=== PATIENT | female | born 1960 | race Caucasian/White ===

== ENCOUNTER 2016-10-05 12:27 | Emergency (ER) | payer MEDICARE, MEDICAID ==
[~2016-10-05] VITALS: Ht 160 cm; Wt 61.5 kg
[~2016-10-05 12:27] MED LIST: AMOX875 PO; BUSP5TAB PO; CEPALOZ SUCK-ON; CYMB60CA PO; DICY10 PO; GABA300C3 PO; LINA145C PO; LORA1TAB PO; MACR100C PO; MUCI600T PO; OMEP40CA2 PO; OXYC20TA PO; PHEN-426 PO; VALT1TAB26 PO; ZOFR4TAB3 SL
[2016-10-05 12:29] VITALS: BP 130/75; PULSE 85; RESP 20; TEMP 97.9; O2SAT 98
--- NOTE | 2016-10-05 12:52 | PD ---
Physical Exam Date Seen by Provider: Oct 05, 2016 Time Seen by Provider: 12:49 Narrative Patient seen in triage with reports of Dog Bite to Left Hand by her own dog last night. Patient states it is still bleeding. No significant pain. Vitals sign stable. Patient awaiting bed placement. Data Data Last Documented VS Vital Signs Date Time Temp Pulse Resp B/P Pulse Ox O2 Delivery O2 Flow Rate FiO2 10/05/16 12:29 97.9 85 20 130/75 98 Room Air [facility] Medical Record Reviewed: Yes Supervised Visit with SUBHASH: Yes Condition: Stable Brandon Alcantara Oct 05, 2016 12:52
[2016-10-05] MEDS ORDERED: AUGM875T PO (13:24)
[2016-10-05] MEDS ORDERED: IBUP-232 PO (13:24)
--- NOTE | 2016-10-05 13:25 | PD ---
HPI Chief Complaint: Wound/Suture/Staple Re-Check Time Seen by Provider: 13:23 Travel History International Travel<30 days: No Contact w/Intl Traveler<30days: No Traveled to known affect area: No History of Present Illness HPI 56-year-old female presents emergency Department with complaint of a dog bite wound to her left hand that happened 2 days ago. The dog was her own dog and is up-to-date on his vaccinations. She is up-to-date on her tetanus vaccination. She thinks that she may need a stitch in the wound because when she applies pressure to it it bleeds a little bit. Denies paresthesias, loss of sensation or decreased range of motion, decreased strength to affected extremity. Denies fever, chills, nausea, vomiting. Allergies to Cipro. No other modifying factors or associated signs and symptoms. PFSH Past Medical History Arthritis: Yes (degen disc disease) Autoimmune Disease: No Heart Rhythm Problems: No Cardiac Catheterization: No Cardiovascular Problems: Yes High Cholesterol: Yes Diabetes: Yes Diminished Hearing: No Respiratory: Yes (COPD) Menopausal: Yes Tubal Ligation: Yes Past Surgical History Abdominal Surgery: Yes (choley) Cholecystectomy: Yes Coronary Artery Bypass Graft: No Joint Replacement: Yes (bilat hip) Other Surgery: Yes (tubal ligation) Social History Alcohol Use: No Tobacco Use: No Substance Use: No Allergies-Medications (Allergen,Severity, Reaction): Coded Allergies: Cipro (Verified Allergy, Severe, STIFFENS HER MUSCLES, 10/05/16) Reported Meds & Prescriptions Reported Meds & Active Scripts Active Ibuprofen 600 Mg Tab 600 Mg PO Q6H PRN Augmentin (Amoxicillin-Clavulanate) 875-125 mg Tab 875 Mg PO BID 10 Days not for use in CrCl <30 ml/min. Mucinex (Guaifenesin) 600 Mg Tabcr 600 Mg PO BID PRN Cepacol (Benzocaine/Menthol) 1 Lozg Lozg 1 Lozg SUCK-ON DIRECTED PRN Amoxicillin 875 Mg Tab 875 Mg PO BID 10 Days Macrobid (Nitrofurantoin Macrocrystals) 100 Mg Cap 100 Mg PO BID Pyridium (Phenazopyridine HCl) 100 Mg Tab 100 Mg PO TID Zofran ODT (Ondansetron HCl) 4 Mg Tab 4 Mg SL Q6HR PRN FOR NAUSEA/VOMITING Reported Omeprazole 40 mg (Omeprazole) 40 Mg Cap 40 Mg PO DAILY Bentyl (Dicyclomine HCl) 10 Mg Cap 10 Mg PO BID PRN Cymbalta (Duloxetine Hcl) 60 Mg Cap 60 Mg PO BID Oxycodone (Oxycodone HCl) 20 Mg Tab 20 Mg PO QID Buspirone Hcl (Buspirone HCl) 5 Mg Tab 15 Mg PO BID Valtrex (Valacyclovir HCl) 1 Gm Tab 1 Gm PO DAILY Linzess (Linaclotide) 145 Mcg Cap 145 Mcg PO DAILY PRN Lorazepam 1 Mg Tab 1 Mg PO BID Gabapentin 300 Mg Cap 300 Mg PO TID Review of Systems Except as stated in HPI: all other systems reviewed are Neg Physical Exam Narrative GENERAL: Well-nourished, well-developed female patient, in no acute distress SKIN: Warm and dry. Less than 0.5 cm puncture wound noted to the dorsal medial aspect of the left hand; the wound is scabbed over and without erythema, edema, signs of infection. The left upper extremity supple and non-tense with 2+ radial pulses and sensory intact with full range motion and strength. No axillary lymphadenopathy. HEAD: Atraumatic. Normocephalic. EYES: Pupils equal and round. No scleral icterus. No injection or drainage. ENT: Mucosa pink and moist. Airway patent. NECK: Trachea midline. CARDIOVASCULAR: Regular rate. RESPIRATORY: No accessory muscle use. GASTROINTESTINAL: Flat. MUSCULOSKELETAL: No obvious deformities. No clubbing. No cyanosis. No edema. NEUROLOGICAL: Awake and alert. Oriented 3. No obvious cranial nerve deficits. Motor grossly within normal limits. Normal speech. PSYCHIATRIC: Appropriate mood and affect; insight and judgment normal. Data Data Last Documented VS Vital Signs Date Time Temp Pulse Resp B/P Pulse Ox O2 Delivery O2 Flow Rate FiO2 10/05/16 12:29 97.9 85 20 130/75 98 Room Air MDM Medical Decision Making Medical Screen Exam Complete: Yes Emergency Medical Condition: Yes Medical Record Reviewed: Yes Differential Diagnosis Dogbite, puncture wound, laceration Narrative Course 56-year-old female with dog bite puncture wound to her left hand. The dog was her own dog. She declines initiation of rabies protocol. Her tetanus is up-to- date. Left approximately supple and non-tense with 2+ radial pulses and sensory intact without erythema or edema. Augmentin and ibuprofen prescribed for home. Patient verbalizes understanding and agreement with treatment plan. Patient is medically cleared and stable for discharge. Discussed reasons to return to the emergency department. Instructed patient to follow up with primary care provider. Patient agrees with treatment plan. The patients vital signs are stable and the patient is stable for outpatient follow-up and treatment. Patient discharged home, stable and in no acute distress. Diagnosis Primary Impression: Dog bite of left hand Qualified Code: S61.452A - Dog bite of left hand, initial encounter Referrals: Primary Care Physician Patient Instructions: Animal Bite (ED), General Instructions Departure Forms: Tests/Procedures, Work Release Enter return to work date: Oct 06, 2016 Additional Instructions: Ibuprofen or Tylenol as directed and as needed for pain and inflammation Antibiotic as prescribed and complete full course Keep area clean and dry Apply topical antibiotic ointment as directed and as needed for wound care Follow up with primary care provider Return to the emergency department immediately with worsening symptoms Med/Other Pt SpecificInfo: Prescription(s) given Scripts Ibuprofen 600 Mg [id number] Mg PO Q6H PRN (PAIN SCALE 1 TO 10) #20 TAB Ref 0 Prov:Isabella Sarmiento 10/05/16 Amoxicillin-Clavulanate (Augmentin)875-125 mg [id number] Mg PO BID 10 Days Ref 0 not for use in CrCl <30 ml/min. Prov:Isabella Sarmiento 10/05/16 Disposition: 01 DISCHARGE HOME Condition: Stable Isabella Sarmiento Oct 05, 2016 13:25
== END 2016-10-05 13:48 | disposition home or self-care (01) ==
LOC: NETRI 12:27
DX: S61.452A Open bite of left hand, initial encounter (principal); W54.0XXA Bitten by dog, initial encounter
CPT/HCPCS: 99283

== ENCOUNTER 2016-11-03 12:20 | Emergency (ER) | payer OTHER, MEDICARE, MEDICAID ==
[~2016-11-03] VITALS: Ht 160 cm; Wt 62.0 kg
[~2016-11-03 12:20] MED LIST changes: +AUGM875T PO; +IBUP-232 PO
[2016-11-03 12:21] VITALS: BP 136/75; PULSE 82; RESP 20; TEMP 98.4; O2SAT 99
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
[2016-11-03] MEDS ORDERED: OPAN10TA19 PO (13:04)
[2016-11-03] MEDS ORDERED: DICY10 PO (13:07)
[2016-11-03] MEDS ORDERED: BUSP15TA PO (13:07)
[2016-11-03] MEDS ORDERED: IBUP-232 PO (13:15)
[2016-11-03] MEDS ORDERED: CYMB60CA PO (13:15)
[2016-11-03] MEDS ORDERED: VALT1TAB PO (13:15)
[2016-11-03] MEDS ORDERED: OMEP40CA2 PO (13:15)
[2016-11-03] MEDS ORDERED: ZOFR4TAB3 SL (13:15)
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
[2016-11-03] MEDS ORDERED: IBUP800T23 PO (13:29)
[2016-11-03] MEDS ORDERED: ROBA500T PO (13:29)
[2016-11-03] MEDS ORDERED: IBUPROFEN 800 MG TAB PO ONE (13:30)
[2016-11-03] MEDS ORDERED: METHOCARBAMOL 500 MG TAB PO ONE (13:30)
== END 2016-11-03 14:34 | disposition home or self-care (01) ==
LOC: NEPK 12:20
DX: S46.811A Strain of other muscles, fascia and tendons at shoulder and upper arm level, right arm, initial encounter (principal); S16.1XXA Strain of muscle, fascia and tendon at neck level, initial encounter; M25.562 Pain in left knee; E11.9 Type 2 diabetes mellitus without complications; I10 Essential (primary) hypertension; E78.00 Pure hypercholesterolemia, unspecified; Z87.39 Personal history of other diseases of the musculoskeletal system and connective tissue; Z86.79 Personal history of other diseases of the circulatory system; Z87.09 Personal history of other diseases of the respiratory system; V89.2XXA Person injured in unspecified motor-vehicle accident, traffic, initial encounter
CPT/HCPCS: 99283

== ENCOUNTER 2016-12-17 19:10 | Emergency (ER) | payer MEDICARE, MEDICAID ==
[~2016-12-17] VITALS: Ht 160 cm; Wt 65.0 kg
[~2016-12-17 19:10] MED LIST changes: -AMOX875 PO; -AUGM875T PO; +BUSP15TA PO; -BUSP5TAB PO; -CEPALOZ SUCK-ON; -GABA300C3 PO; +IBUP800T23 PO; -LINA145C PO; -LORA1TAB PO; -MACR100C PO; -MUCI600T PO; +OPAN10TA19 PO; -OXYC20TA PO; -PHEN-426 PO; +ROBA500T PO; +VALT1TAB PO; -VALT1TAB26 PO
[2016-12-17 19:11] VITALS: BP 109/71; PULSE 84; RESP 16; TEMP 98.4; O2SAT 99
[2016-12-17] MEDS ORDERED: AUGM875T3 PO (19:36)
--- NOTE | 2016-12-17 19:37 | PD ---
HPI Chief Complaint: Bite or Sting Time Seen by Provider: 19:28 Travel History International Travel<30 days: No Contact w/Intl Traveler<30days: No Traveled to known affect area: No History of Present Illness HPI 56-year-old female here for evaluation of lacerations left index finger and one laceration to the dorsal aspect of her right hand after being bit by her own dog. The patient reports that she has a Pomeranian likes to bite, and bit her hands about an hour ago. She states that the dog has all of his immunizations. She reports that she recently had her tetanus updated this year. Pain is mild. She reports that she washed her hands thoroughly after the bite and applied hydrogen peroxide to the wounds. PFSH Past Medical History Arthritis: Yes (degen disc disease) Autoimmune Disease: No Heart Rhythm Problems: No Cardiac Catheterization: No Cardiovascular Problems: Yes (HTN ) High Cholesterol: Yes Diabetes: Yes Diminished Hearing: No Hypertension: Yes (pt denies) Respiratory: Yes (COPD) Menopausal: Yes Tubal Ligation: Yes Past Surgical History Abdominal Surgery: Yes ( ) Cholecystectomy: Yes Coronary Artery Bypass Graft: No Joint Replacement: Yes (bilat hip) Other Surgery: Yes (tubal ligation) Social History Alcohol Use: Yes (seldom) Tobacco Use: No Substance Use: No Allergies-Medications (Allergen,Severity, Reaction): Coded Allergies: Cipro (Verified Allergy, Severe, STIFFENS HER MUSCLES, 12/17/16) Reported Meds & Prescriptions Reported Meds & Active Scripts Active Augmentin (Amoxicillin-Clavulanate) 875-125 Mg Tab 1 Tab PO BID 14 Days Reported Elmiron (Pentosan Polysulfate Sodium) 100 Mg Cap 100 Mg PO TID Valtrex (Valacyclovir HCl) 1 Gm Tab 1,000 Mg PO DAILY Zofran Odt (Ondansetron Odt) 4 Mg Tab 4 Mg SL Q12HR PRN Omeprazole 40 Mg Cap 40 Mg PO DAILY Ibuprofen 600 Mg Tab 600 Mg PO Q6H PRN Cymbalta DR (Duloxetine HCl) 60 Mg Capdr 60 Mg PO BID Bentyl (Dicyclomine HCl) 10 Mg Cap 10 Mg PO BID PRN Buspirone (Buspirone HCl) 15 Mg Tab 15 Mg PO BID Opana (Oxymorphone HCl) 10 Mg Tab 30 Mg PO Q12HR Review of Systems Except as stated in HPI: all other systems reviewed are Neg Physical Exam Narrative GENERAL: Well-developed, well-nourished, comfortable, no acute distress. SKIN: Very superficial lacerations to left index finger, one over the dorsal aspect over the DIP joint, and another over the medial/volar/distal aspect. There is also very superficial laceration to the proximal/dorsal right hand. No obvious contaminants. No active bleeding. CARDIOVASCULAR: Regular rate and rhythm. Bilateral distal radial pulses are brisk and equal. Normal capillary refill to bilateral hands and left index finger. MUSCULOSKELETAL: Skin exam as above. Normal range of flexion and extension in left index finger against resistance. FDS and FDP are intact. NEUROLOGICAL: Awake and alert. No obvious cranial nerve deficits. Motor grossly within normal limits. Normal speech. Normal sensation in bilateral hands. PSYCHIATRIC: Appropriate mood and affect; insight and judgment normal. Data Data Last Documented VS Vital Signs Date Time Temp Pulse Resp B/P Pulse Ox O2 Delivery O2 Flow Rate FiO2 12/17/16 19:11 98.4 84 16 109/71 99 Room Air Orders Finger ([id number]) (12/17/16 ) Amoxicil-Clavulanate (Augmentin) (12/17/16 19:45) MDM Medical Decision Making Medical Screen Exam Complete: Yes Emergency Medical Condition: Yes Differential Diagnosis Dog bite, tendon/ligament injury unlikely Narrative Course Left index finger x-ray: CONCLUSION: Osseous structures of the 2nd digit are intact. No radiopaque foreign bodies. Patient has very superficial lacerations to her left index finger as well as the dorsal aspect of her right hand. Because these are dog bite, they will not be closed. There is no active bleeding. No visible contaminants. No physical exam findings of tendon or ligament injury. The patient will be started on Augmentin. She is stable for discharge home with primary care physician follow- up this week. She was informed on when to return to the emergency department. She verbalizes understanding and agreement with plan. Diagnosis Primary Impression: Dog bite Qualified Code: W54.0XXA - Dog bite, initial encounter Referrals: Primary Care Physician 3 days Additional Instructions: Follow-up with your primary care physician this week. Take antibiotic as prescribed. Return to the emergency department for worsening symptoms or any other concerns. Scripts Amoxicillin-Clavulanate (Augmentin)875-125 Mg Tab1 Tab PO BID 14 Days Ref 0 Prov:Syed Mayers MD 12/17/16 Disposition: 01 DISCHARGE HOME Condition: Stable Syed Mayers MD Dec 17, 2016 19:37
[2016-12-17] MEDS ORDERED: AMOXICILLIN/CLAVULANATE K 875 MG TAB PO ONE (19:45)
[2016-12-17] MEDS ORDERED: ELMI100C PO (20:02)
--- NOTE | 2016-12-17 20:20 | RADRPT ---
EXAM DATE/TIME: 12/17/2016 19:54 [facility] COMPARISON: No previous studies available for comparison. INDICATIONS : Dog bite, laceration to distal and middle phalanges of 2nd digit. MEDICAL HISTORY : None. SURGICAL HISTORY : None. ENCOUNTER: Initial ACUITY: 1 day PAIN SCORE: 5/10 LOCATION: Left 2nd finger FINDINGS: Examination of the second digit of the left hand demonstrates no evidence of fracture or dislocation. No radiopaque foreign bodies are seen. The soft tissues are intact. CONCLUSION: Osseous structures of the 2nd digit are intact. No radiopaque foreign bodies. Kar Fournier MD on December 17, 2016 at 20:17 Board Certified Radiologist. This report was verified electronically.
== END 2016-12-17 20:59 | disposition home or self-care (01) ==
LOC: NEPD 19:10
DX: S61.251A Open bite of left index finger without damage to nail, initial encounter (principal); W54.0XXA Bitten by dog, initial encounter; I10 Essential (primary) hypertension; E11.9 Type 2 diabetes mellitus without complications; J44.9 Chronic obstructive pulmonary disease, unspecified
CPT/HCPCS: 73140; 99283

== ENCOUNTER 2016-12-19 15:52 | Emergency (ER) | payer MEDICARE, MEDICAID ==
[~2016-12-19] VITALS: Ht 160 cm; Wt 60.0 kg
[~2016-12-19 15:52] MED LIST changes: +AUGM875T3 PO; +ELMI100C PO; -IBUP800T23 PO; -ROBA500T PO
[2016-12-19 15:53] VITALS: BP 116/73; PULSE 84; RESP 16; TEMP 98.4; O2SAT 99
[2016-12-19] MEDS ORDERED: SODIUM CHLOR 0.9% 1000 ML INJ 1,000 ML IV SCH (17:09)
[2016-12-19 17:10] VITALS: RESP 17; O2SAT 99
--- NOTE | 2016-12-19 17:14 | PD ---
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 She states that it is intermittent and goes up to a 10 out of 10. She has been having hematuria. She denies any fevers, vomiting, or any other symptoms. She states that she was trying to follow-up with Dr. Shoemaker but he is not around. Modifying Factors: None Associated Signs & Symptoms: Left flank pain worsening for a month Risk Factors: Horseshoe kidney PFSH Past Medical History Arthritis: Yes (degen disc disease) Autoimmune Disease: No Anxiety: Yes Depression: Yes Heart Rhythm Problems: No Cardiac Catheterization: No Cardiovascular Problems: Yes (HTN ) High Cholesterol: Yes Diabetes: Yes Diminished Hearing: No Genitourinary: Yes (LEFT KIDNEY CYST) Heparin Induced Thrombocytopen: No Hypertension: Yes (pt denies) Psychiatric: Yes Respiratory: Yes (COPD) Tetanus Vaccination: < 5 Years Influenza Vaccination: Yes Menopausal: Yes Tubal Ligation: Yes Past Surgical History Abdominal Surgery: Yes ( ) Cholecystectomy: Yes Coronary Artery Bypass Graft: No Joint Replacement: Yes (bilat hip) Other Surgery: Yes (tubal ligation) Family History Family Myocardial Infarction: Yes (father side grandfather ) Social History Alcohol Use: Yes (OCASSIONALLY) Tobacco Use: No Substance Use: No Allergies-Medications (Allergen,Severity, Reaction): Coded Allergies: Cipro (Verified Adverse Reaction, Severe, STIFFENS HER MUSCLES, 12/19/16) Reported Meds & Prescriptions Reported Meds & Active Scripts Active Augmentin (Amoxicillin-Clavulanate) 875-125 Mg Tab 1 Tab PO BID 14 Days Reported Elmiron (Pentosan Polysulfate Sodium) 100 Mg Cap 100 Mg PO TID Valtrex (Valacyclovir HCl) 1 Gm Tab 1,000 Mg PO DAILY Zofran Odt (Ondansetron Odt) 4 Mg Tab 4 Mg SL Q12HR PRN Omeprazole 40 Mg Cap 40 Mg PO DAILY Ibuprofen 600 Mg Tab 600 Mg PO Q6H PRN Cymbalta DR (Duloxetine HCl) 60 Mg Capdr 60 Mg PO BID Bentyl (Dicyclomine HCl) 10 Mg Cap 10 Mg PO BID PRN Buspirone (Buspirone HCl) 15 Mg Tab 15 Mg PO BID Opana (Oxymorphone HCl) 10 Mg Tab 30 Mg PO Q12HR Review of Systems Except as stated in HPI: all other systems reviewed are Neg Physical Exam Narrative GENERAL: Well-developed elderly white female patient currently in moderate distress. Awake and oriented 3. SKIN: Focused skin assessment warm/dry. HEAD: Atraumatic. Normocephalic. EYES: Pupils equal and round. No scleral icterus. No injection or drainage. ENT: No nasal bleeding or discharge. Mucous membranes pink and moist. NECK: Trachea midline. No JVD. CARDIOVASCULAR: Regular rate and rhythm. No murmur appreciated. RESPIRATORY: No accessory muscle use. Clear to auscultation. Breath sounds equal bilaterally. GASTROINTESTINAL: Abdomen soft, non-tender, nondistended. Hepatic and splenic margins not palpable. BACK: Left CVA tenderness. No rash. No point tenderness on palpation of the spine. MUSCULOSKELETAL: No obvious deformities. No clubbing. No cyanosis. No edema. NEUROLOGICAL: Awake and alert. No obvious cranial nerve deficits. Motor grossly within normal limits. Normal speech. PSYCHIATRIC: Appropriate mood and affect; insight and judgment normal. Data Data Last Documented VS Vital Signs Date Time Temp Pulse Resp B/P Pulse Ox O2 Delivery O2 Flow Rate FiO2 12/19/16 17:20 16 12/19/16 17:10 99 Room Air 12/19/16 15:53 98.4 84 116/73 Orders Complete Blood Count With Diff (12/19/16 17:09) Comprehensive Metabolic Panel (12/19/16 17:09) Lipase (12/19/16 17:09) Urinalysis - C+S If Indicated (12/19/16 17:09) Ct Abd/Pel W/O Iv Contrast (12/19/16 17:09) Iv Access Insert/Monitor (12/19/16 17:09) Ecg Monitoring (12/19/16 17:09) Oximetry (12/19/16 17:09) Morphine Inj (Morphine Inj) (12/19/16 17:15) Ondansetron Inj (Zofran Inj) (12/19/16 17:15) Sodium Chlor 0.9% 1000 Ml Inj (Ns 1000 M (12/19/16 17:09) Sodium Chloride 0.9% Flush (Ns Flush) (12/19/16 17:15) Labs Laboratory Tests Test 12/19/16 12/19/16 17:11 17:18 White Blood Count 5.6 TH/MM3 Red Blood Count 4.43 MIL/MM3 Hemoglobin 13.2 GM/DL Hematocrit 40.6 % Mean Corpuscular Volume 91.7 FL Mean Corpuscular Hemoglobin 29.7 PG Mean Corpuscular Hemoglobin 32.4 % Concent Red Cell Distribution Width 15.0 % Platelet Count 278 TH/MM3 Mean Platelet Volume 8.0 FL Neutrophils (%) (Auto) 43.0 % Lymphocytes (%) (Auto) 39.5 % Monocytes (%) (Auto) 13.0 % Eosinophils (%) (Auto) 3.7 % Basophils (%) (Auto) 0.8 % Neutrophils # (Auto) 2.4 TH/MM3 Lymphocytes # (Auto) 2.2 TH/MM3 Monocytes # (Auto) 0.7 TH/MM3 Eosinophils # (Auto) 0.2 TH/MM3 Basophils # (Auto) 0.0 TH/MM3 CBC Comment DIFF FINAL Differential Comment Sodium Level 143 MEQ/L Potassium Level 3.6 MEQ/L Chloride Level 107 MEQ/L Carbon Dioxide Level 30.7 MEQ/L Anion Gap 5 MEQ/L Blood Urea Nitrogen 19 MG/DL Creatinine 1.02 MG/DL Estimat Glomerular Filtration 56 ML/MIN Rate Random Glucose 91 MG/DL Calcium Level 8.6 MG/DL Total Bilirubin 0.2 MG/DL Aspartate Amino Transf 17 U/L (AST/SGOT) Alanine Aminotransferase 23 U/L (ALT/SGPT) Alkaline Phosphatase 103 U/L Total Protein 6.6 GM/DL Albumin 3.7 GM/DL Lipase 272 U/L Urine Color YELLOW Urine Turbidity CLEAR Urine pH 5.5 Urine Specific [place] 1.029 Urine Protein TRACE mg/dL Urine Glucose (UA) NEG mg/dL Urine Ketones NEG mg/dL Urine Occult Blood SMALL Urine Nitrite NEG Urine Bilirubin NEG Urine Urobilinogen 2.0 MG/DL Urine Leukocyte Esterase SMALL Urine RBC 24 /hpf Urine WBC 1 /hpf Urine Squamous Epithelial 1 /hpf Cells Urine Mucus FEW /lpf Microscopic Urinalysis Comment CULT NOT INDICATED MDM Medical Decision Making Medical Screen Exam Complete: Yes Emergency Medical Condition: Yes Medical Record Reviewed: Yes Interpretation(s) Laboratory Tests Test 12/19/16 12/19/16 17:11 17:18 Monocytes (%) (Auto) 13.0 % (0.0-8.0) Blood Urea Nitrogen 19 MG/DL (7-18) Creatinine 1.02 MG/DL (0.50-1.00) Estimat Glomerular Filtration 56 ML/MIN (>89) Rate Urine Occult Blood SMALL (NEG) Urine Leukocyte Esterase SMALL (NEG) Urine RBC 24 /hpf (0-3) Urine Mucus FEW /lpf (OCC) Last 24 hours Impressions Abdomen/Pelvis CT 12/19/16 1709 Signed Impressions: Service Date/Time: Monday, December 19, 2016 17:33 - CONCLUSION: 1. No acute obstructive uropathy. 2. Slight increase in the cystic lesion within the left lobe of the liver measuring 4.2 x 3.5 cm. 3. Degenerative changes and scoliosis of the lumbar spine. Cristhian Ravi MD Differential Diagnosis Left flank pains, horseshoe kidneyrenal colic versus pyelonephritis/UTI versus other acute intra-abdominal processes Narrative Course CAT scan did not show any signs of a horseshoe kidney. There are no signs of renal colic or any other acute issues. UA shows blood but no signs of UTI. At this point, it is possible she had just passed a stone. She had been given pain medications in the ER and appears fairly comfortable on reevaluation at 6: 20 PM. My plan would be to give her further symptomatic relief or pain and have her follow-up with primary care physician and urologist. Return for any worsening in pain or new symptoms as needed. The plan has discussed with her and she states understanding. Diagnosis Primary Impression: Left flank pain Med/Other Pt SpecificInfo: Prescription(s) given Scripts Tramadol-Acetaminophen 37.5-325 mg Tab1 Tab PO Q6H PRN (PAIN) #20 TAB Ref 0 Prov:Niki Dye MD 12/19/16 Disposition: 01 DISCHARGE HOME Condition: Stable Niki Dye MD Dec 19, 2016 17:14
[2016-12-19] MEDS ORDERED: SODIUM CHLORIDE 0.9% FLUSH 10 ML FLUSH IV FLUSH PRN (17:15)
[2016-12-19] MEDS ORDERED: MORPHINE SULFATE 4 MG/ML INJ IV PUSH ONE (17:15)
[2016-12-19] MEDS ORDERED: ONDANSETRON HCL 4 MG/2 ML VIAL IVP ONE (17:15)
[2016-12-19 17:20] VITALS: RESP 16
[2016-12-19 17:51] LABS: AUTOMATED NEUTROPHIL # 2.4 TH/MM3 (1.8-7.7); BASOPHIL % 0.8 % (0.0-2.0); EOSINOPHIL # 0.2 TH/MM3 (0-0.4); EOSINOPHIL % 3.7 % (0.0-4.0); HEMATOCRIT 40.6 % (35.0-46.0); HEMO FLAGS DIFF FINAL; LYMPH % 39.5 % (9.0-44.0); LYMPHOCYTE # 2.2 TH/MM3 (1.0-4.8); MEAN CELL VOLUME 91.7 FL (80.0-100.0); MEAN CORPUSCULAR HEMOGLOBIN 29.7 PG (27.0-34.0); MEAN CORPUSCULAR HGB CONC 32.4 % (32.0-36.0); PLATELET COUNT 278 TH/MM3 (150-450); RED BLOOD COUNT 4.43 MIL/MM3 (4.00-5.30); WHITE BLOOD COUNT 5.6 TH/MM3 (4.0-11.0)
--- NOTE | 2016-12-19 17:56 | RADRPT ---
EXAM DATE/TIME: 12/19/2016 17:33 [facility] COMPARISON: CT ABDOMEN & PELVIS W/O CONTRAST, March 28, 2015, 12:08. INDICATIONS : Left flank pain past month. ORAL CONTRAST: No oral contrast ingested. RADIATION DOSE: 7.14 CTDIvol (mGy) MEDICAL HISTORY : Cardiovascular disease. Hypertension. SURGICAL HISTORY : Bilateral hip replacements. ENCOUNTER: Initial ACUITY: 4 - 6 months PAIN SCALE: 5/10 LOCATION: Left flank TECHNIQUE: Volumetric scanning of the abdomen and pelvis was performed. Using automated exposure control and ad justment of the mA and/or kV according to patient size, radiation dose was kept as low as reasonably achievable to obtain optimal diagnostic quality images. FINDINGS: LOWER LUNGS: The visualized lower lungs are clear. LIVER: There is a 4.2 x 3.5 cm cystic lesion within the left lobe which has increased slightly in size zoe red to the previous examination in 2014. There is no dilation of the biliary tree. No calcified gall stones. Status post cholecystectomy. SPLEEN: Normal size without lesion. PANCREAS: Within normal limits. KIDNEYS: Normal in size and shape. There is no mass, stone, or hydronephrosis. ADRENAL GLANDS: Within normal limits. VASCULAR: There is no aortic aneurysm. BOWEL/MESENTERY: The stomach, small bowel, and colon demonstrate no acute abnormality. There is no free intraperitone al air or fluid. ABDOMINAL WALL: Within normal limits. RETROPERITONEUM: There is no lymphadenopathy. BLADDER: No wall thickening or mass. REPRODUCTIVE: Within normal limits. INGUINAL: There is no lymphadenopathy or hernia. MUSCULOSKELETAL: Degenerative changes and scoliosis of the lumbar spine are stable. Bilateral hip replacements are not ed and artifact from these metallic prostheses obscures portions of the pelvis. CONCLUSION: 1. No acute obstructive uropathy. 2. Slight increase in the cystic lesion within the left lobe of the liver measuring 4.2 x 3.5 cm. 3. Degenerative changes and scoliosis of the lumbar spine. Cristhian Ravi MD on December 19, 2016 at 17:44 Board Certified Radiologist. This report was verified electronically.
[2016-12-19 18:02] LABS: BLOOD, URINE SMALL (NEG); GLUCOSE,URINE NEG (NEG); KETONE, URINE NEG (NEG); MUCUS URINE FEW /lpf (OCC); NITRITE,URINE NEG (NEG); PH, URINE 5.5 (5.0-8.5); SQUAMOUS EPITHELIAL CELL URINE 1 /hpf (0-5); URINE COLOR YELLOW (YELLW/STRAW)
[2016-12-19 18:05] LABS: COMMENT (UR) CULT NOT INDICATED; CULTURE IF INDICATED CULT NOT INDICATED
[2016-12-19 18:19] LABS: ALT (GPT) 23 U/L (10-53); ANION GAP 5 MEQ/L (5-15); AST (GOT) 17 U/L (15-37); BICARBONATE 30.7 MEQ/L (21.0-32.0); BLOOD UREA NITROGEN 19 MG/DL (7-18); CHLORIDE 107 MEQ/L (98-107); GLOMERULAR FILTRATION RATE 56 ML/MIN (>89); POTASSIUM 3.6 MEQ/L (3.5-5.1); SODIUM (NA) 143 MEQ/L (136-145)
[2016-12-19 18:21] LABS: ALKALINE PHOSPHATASE 103 U/L (45-117); TOTAL BILIRUBIN ADULT 0.2 MG/DL (0.2-1.0)
[2016-12-19] MEDS ORDERED: TRAM-388 PO (18:27)
[2016-12-19 18:42] VITALS: BP 130/77; TEMP 97.8
== END 2016-12-19 18:42 | disposition home or self-care (01) ==
LOC: NEPC 15:52
DX: R10.9 Unspecified abdominal pain (principal)
CPT/HCPCS: 74176; 80053; 81001; 83690; 85025; 96361; 96374; 96375; 99285; J2270; J2405; J7030

== ENCOUNTER 2017-03-03 08:36 | Emergency (ER) | payer MEDICARE, MEDICAID ==
[~2017-03-03] VITALS: Ht 160 cm; Wt 61.5 kg
[~2017-03-03 08:36] MED LIST changes: +TRAM-388 PO
[2017-03-03 08:38] VITALS: BP 110/75; PULSE 80; RESP 20; TEMP 98.7; O2SAT 98
[2017-03-03] MEDS ORDERED: OXYC1CAP5 (09:38)
[2017-03-03] MEDS ORDERED: AUGM875T3 PO (09:54)
--- NOTE | 2017-03-03 09:55 | PD ---
HPI Chief Complaint: Bite or Sting Time Seen by Provider: 09:52 Travel History International Travel<30 days: No Contact w/Intl Traveler<30days: No Traveled to known affect area: No History of Present Illness HPI 57-year-old female presents emergency Department with complaint of dog bite wound to her left hand since last night. Reports pain and some reddening around 2 bite castillo. Denies fever, vomiting. Is up-to-date on her tetanus vaccination. 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 Denies paresthesias, loss of sensation, decreased range of motion, decreased strength to the affected extremity. Has taken prescribed oxycodone for symptom management. Allergies to ciprofloxacin. Has no other medical complaints. No other modifying factors or associated signs and symptoms. PFSH Past Medical History Hx Anticoagulant Therapy: No Arthritis: Yes (degen disc disease) Autoimmune Disease: No Anxiety: Yes Depression: Yes Heart Rhythm Problems: No Cardiac Catheterization: No Cardiovascular Problems: No High Cholesterol: Yes Chemotherapy: No Cerebrovascular Accident: No Diabetes: Yes Patient Takes Glucophage: No Diminished Hearing: No Genitourinary: Yes (LEFT KIDNEY CYST) Heparin Induced Thrombocytopen: No Hypertension: Yes (pt denies) Psychiatric: Yes Respiratory: No Tetanus Vaccination: < 5 Years ?: Not Menopausal: Yes Tubal Ligation: Yes Past Surgical History Abdominal Surgery: Yes ( ) Cholecystectomy: Yes Coronary Artery Bypass Graft: No Hysterectomy: No Joint Replacement: Yes (bilat hip) Other Surgery: Yes (tubal ligation) Family History Family Myocardial Infarction: Yes (father side grandfather ) Social History Alcohol Use: Yes (OCASSIONALLY) Tobacco Use: No Substance Use: No Allergies-Medications (Allergen,Severity, Reaction): Coded Allergies: ciprofloxacin (Unverified Adverse Reaction, Severe, STIFFENS HER MUSCLES, 02/21/17) Reported Meds & Prescriptions Reported Meds & Active Scripts Active Augmentin (Amoxicillin-Clavulanate) 875-125 Mg Tab 1 Tab PO BID 10 Days Reported Xtampza ER (Oxycodone) 18 Mg Cap BID Elmiron (Pentosan Polysulfate Sodium) 100 Mg Cap 100 Mg PO TID Valtrex (Valacyclovir HCl) 1 Gm Tab 1,000 Mg PO DAILY Omeprazole 40 Mg Cap 40 Mg PO DAILY Cymbalta DR (Duloxetine HCl) 60 Mg Capdr 60 Mg PO BID Buspirone (Buspirone HCl) 15 Mg Tab 15 Mg PO BID Review of Systems Except as stated in HPI: all other systems reviewed are Neg Physical Exam Narrative GENERAL: Well-nourished, well-developed female patient, in no acute distress; afebrile, nontoxic-appearing SKIN: Warm and dry. Palmar aspect of left hand over the area of the fifth metatarsal with 3-4 superficial puncture wounds noted, one with some surrounding erythema; one puncture wound noted to the left palmar aspect of the left distal forearm with some surrounding erythema. No areas with drainage noted. 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 No lymphangitis. HEAD: Atraumatic. Normocephalic. EYES: Pupils equal and round. No scleral icterus. No injection or drainage. ENT: Mucosa pink and moist. Airway patent. NECK: Trachea midline. CARDIOVASCULAR: Regular rate. RESPIRATORY: No accessory muscle use. GASTROINTESTINAL: Flat. MUSCULOSKELETAL: No obvious deformities. No clubbing. No cyanosis. No edema. NEUROLOGICAL: Awake and alert. Oriented 3. No obvious cranial nerve deficits. Motor grossly within normal limits. Normal speech. PSYCHIATRIC: Appropriate mood and affect; insight and judgment normal. Data Data Last Documented VS Vital Signs Date Time Temp Pulse Resp B/P (MAP) Pulse Ox O2 Delivery O2 Flow Rate FiO2 03/03/17 08:38 98.7 80 20 110/75 (87) 98 Room Air Orders Orders Ibuprofen (Motrin) (03/03/17 10:00) [facility] Medical Decision Making Medical Screen Exam Complete: Yes Emergency Medical Condition: Yes Medical Record Reviewed: Yes Differential Diagnosis Dogbite wounds, puncture wound, medical clearance Narrative Course 57-year-old female with dog bite puncture wounds of her left hand. Patient is afebrile and nontoxic-appearing. Denies fever, vomiting. Up-to-date on her tetanus vaccination. 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 Ibuprofen administered in the ER. Augmentin prescribed for home. Instructed patient to follow up with primary care provider. Patient verbalizes understanding and agreement with treatment plan. Patient is medically cleared and stable for discharge. Discussed reasons to return to the emergency department. Patient agrees with treatment plan. The patients vital signs are stable and the patient is stable for outpatient follow- up and treatment. Patient discharged home, stable and in no acute distress. Diagnosis Primary Impression: Dog bite of left hand Qualified Codes: S61.452A - Open bite of left hand, initial encounter; W54.0XXA - Bitten by dog, initial encounter Referrals: [facility] Primary Care Physician Patient Instructions: Animal Bite (ED), General Instructions Additional Instructions: Keep area clean and dry Antibiotics as prescribed and take until they are gone Follow-up with primary care provider Return to the emergency department immediately with worsening of symptoms Med/Other Pt SpecificInfo: Prescription(s) given Scripts Amoxicillin-Clavulanate (Augmentin) 875-125 Mg Tab 1 TAB PO BID for Infection for 10 Days, TAB 0 Refills Prov: Isabella Sarmiento 03/03/17 Disposition: 01 DISCHARGE HOME Condition: Stable Isabella Sarmiento Mar 03, 2017 09:55
[2017-03-03] MEDS ORDERED: IBUPROFEN 800 MG TAB PO ONE (10:00)
== END 2017-03-03 10:18 | disposition home or self-care (01) ==
LOC: NEPK 08:36
DX: S61.452A Open bite of left hand, initial encounter (principal); E11.9 Type 2 diabetes mellitus without complications; I10 Essential (primary) hypertension; E78.00 Pure hypercholesterolemia, unspecified; Z87.39 Personal history of other diseases of the musculoskeletal system and connective tissue; Z86.59 Personal history of other mental and behavioral disorders; Z87.448 Personal history of other diseases of urinary system; W54.0XXA Bitten by dog, initial encounter
CPT/HCPCS: 99283

== ENCOUNTER 2017-04-15 18:46 | Emergency (ER) | payer MEDICARE, MEDICAID ==
[~2017-04-15] VITALS: Ht 160 cm; Wt 60.0 kg
[~2017-04-15 18:46] MED LIST changes: -DICY10 PO; -IBUP-232 PO; -OPAN10TA19 PO; +OXYC1CAP5; -TRAM-388 PO; -ZOFR4TAB3 SL
[2017-04-15 18:48] VITALS: BP 136/78; PULSE 98; RESP 13; TEMP 99; O2SAT 96
[2017-04-15] MEDS ORDERED: SODIUM CHLORIDE 0.9% FLUSH 10 ML FLUSH IVF PRN (22:30)
[2017-04-15] MEDS ORDERED: NITROGLYCERIN 2% OINT 1 GM PACKET TOP ONE (22:30)
[2017-04-15] MEDS ORDERED: ASPIRIN 81 MG CHEW TAB PO ONE (22:30)
--- NOTE | 2017-04-15 22:52 | RADRPT ---
EXAM DATE/TIME: 04/15/2017 22:27 [facility] COMPARISON: CHEST SINGLE AP, June 22, 2015, 14:26. INDICATIONS : Chest pain. MEDICAL HISTORY : Cardiovascular disease. Chronic obstructive pulmonary disease. Hypertension. SURGICAL HISTORY : Bilateral hip arthroplasties ENCOUNTER: Initial ACUITY: 1 day PAIN SCORE: 10/10 LOCATION: Bilateral chest FINDINGS: A single view of the chest demonstrates the lungs to be symmetrically aerated without evidence of mas s, infiltrate or effusion. The cardiomediastinal contours are unremarkable. Osseous structures are intact. CONCLUSION: No acute disease. Emeka Bauman MD on April 15, 2017 at 22:50 Board Certified Radiologist. This report was verified electronically.
[2017-04-15 23:00] VITALS: BP 134/72; PULSE 78; RESP 16; O2SAT 97
--- NOTE | 2017-04-15 23:00 | PD ---
HPI Chief Complaint: Chest Pain Time Seen by Provider: 22:20 Travel History International Travel<30 days: No Contact w/Intl Traveler<30days: No Traveled to known affect area: No History of Present Illness HPI The patient is a 57 year old female who presents to the [facility] emergency department with a history of chest pain that began 3 months ago. It is coming and going. It began after newly starting on a long acting opiate medication. She has a history of chronic neck and back pain. She also began to have a sore throat yesterday. The pain is in the center of her chest. It feels like a spasm. The chest pain began after awakening this morning. It lasts for 5 minutes at a time. It is made worse with movement. She has had diaphoresis today. The patient has a history of hyperlipidemia and hypertension. She denies having diabetes. She has a history of GERD however it is improved on her medication. She denies smoking. On review of symptoms she denies any fevers, cough, congestion, new or worsening neck pain, abdominal pain, vomiting, diarrhea, urinary symptoms, or neurologic symptoms. She reports that she has been moving her bowels regularly. [facility] Past Medical History Narrative Medical The patient's past medical history is significant for hyperlipidemia, hypertension, cyst on left kidney and liver, chronic neck and back pain, stenosis of the back, DDD of neck and back. Hx Anticoagulant Therapy: No Arthritis: Yes (degen disc disease) Autoimmune Disease: No Anxiety: Yes Depression: Yes Heart Rhythm Problems: No Cardiac Catheterization: No Cardiovascular Problems: No High Cholesterol: Yes Chemotherapy: No Cerebrovascular Accident: No Diabetes: Yes Patient Takes Glucophage: No Diminished Hearing: No Genitourinary: Yes (LEFT KIDNEY CYST) Heparin Induced Thrombocytopen: No Hypertension: Yes (pt denies) Psychiatric: Yes Respiratory: No Menopausal: Yes Tubal Ligation: Yes Past Surgical History Narrative Surgical The patient's past surgical history is significant for cholecystectomy, BTL, bilateral hip replacements. Abdominal Surgery: Yes ( ) Cholecystectomy: Yes Coronary Artery Bypass Graft: No Hysterectomy: No Joint Replacement: Yes (bilat hip) Other Surgery: Yes Family History Family Myocardial Infarction: Yes (father side grandfather ) Social History Alcohol Use: Yes (OCASSIONALLY) Tobacco Use: No Substance Use: No Allergies-Medications (Allergen,Severity, Reaction): Coded Allergies: ciprofloxacin (Unverified Adverse Reaction, Severe, STIFFENS HER MUSCLES, 04/15/17) Reported Meds & Prescriptions Reported Meds & Active Scripts Active Augmentin (Amoxicillin-Clavulanate) 875-125 Mg Tab 1 Tab PO BID 10 Days Reported Xtampza ER (Oxycodone) 18 Mg Cap BID Elmiron (Pentosan Polysulfate Sodium) 100 Mg Cap 100 Mg PO TID Valtrex (Valacyclovir HCl) 1 Gm Tab 1,000 Mg PO DAILY Omeprazole 40 Mg Cap 40 Mg PO DAILY Cymbalta DR (Duloxetine HCl) 60 Mg Capdr 60 Mg PO BID Buspirone (Buspirone HCl) 15 Mg Tab 15 Mg PO BID Review of Systems Except as stated in HPI: all other systems reviewed are Neg General / Constitutional: No: Fever Eyes: No: Visual changes HENT: Positive: Sore Throat, No: Headaches Cardiovascular: Positive: Chest Pain or Discomfort, Diaphoresis, Dyspnea on exertion Respiratory: Positive: Shortness of Breath Gastrointestinal: Positive: Nausea, No: Vomiting, Abdominal Pain Genitourinary: No: Dysuria Musculoskeletal: No: Pain Skin: No Rash Neurologic: No: Weakness Psychiatric: No: Depression Endocrine: No: Polydipsia Hematologic/Lymphatic: No: Easy Bruising Physical Exam Narrative General: The patient is a well-developed well-nourished female in no acute distress. Head and Neck exam: Head is normocephalic atraumatic. Eyes: EOMI, pupils are equal round and reactive to light. Nose: Midline septum with pink mucous membranes Mouth: Dentition unremarkable. Moist mucus membranes. Posterior oropharynx is mildly erythematous. No tonsillar hypertrophy, exudate, or palatal petechiae. Uvula midline. Airway patent. Neck: No palpable lymphadenopathy. No nuchal rigidity. No thyromegaly. Cardiovascular: Regular rate and rhythm without murmurs, gallops, or rubs. No pulse deficit to the extremities on simultaneous auscultation and palpation of the radial artery. Lungs: Clear to auscultation bilaterally. No wheezes, rhonchi, or rales. Abdomen: Soft, without tenderness to palpation in all 4 quadrants of the abdomen. No guarding, rebound, or rigidity. Normal bowel sounds are audible. No tenderness on palpation of McBurney's point. Negative [place] sign. Extremities: No clubbing, cyanosis, or edema. 2+ pulses in all 4 extremities. Back: No spinous process tenderness to palpation. The patient reports having bilateral CVA tenderness on palpation. Neurologic Exam: Grossly nonfocal. Skin Exam: No rash noted. Intact skin that is warm and dry. Data Data Last Documented VS Vital Signs Date Time Temp Pulse Resp B/P (MAP) Pulse Ox O2 Delivery O2 Flow Rate FiO2 04/15/17 23:00 78 16 134/72 (92) 97 Room Air 04/15/17 18:48 99.0 Orders Orders Electrocardiogram (04/15/17 ) B-Type Natriuretic Peptide (04/15/17 22:29) Ckmb (Isoenzyme) Profile (04/15/17 22:29) Complete Blood Count With Diff (04/15/17 22:29) Comprehensive Metabolic Panel (04/15/17 22:29) D-Dimer (04/15/17 22:29) Magnesium (Mg) (04/15/17 22:29) Prothrombin Time / Inr (Pt) (04/15/17 22:29) Act Partial Throm Time (Ptt) (04/15/17 22:29) Troponin I (04/15/17 22:29) Lipase (04/15/17 22:29) Chest, Single Ap (04/15/17 22:29) Ecg Monitoring (04/15/17 22:29) Bilateral Bp Monitoring (04/15/17 22:29) Iv Access Insert/Monitor (04/15/17 22:29) Oximetry (04/15/17 22:29) Oxygen Administration (04/15/17 22:29) Aspirin Chew (Aspirin Chew) (04/15/17 22:30) Nitroglycerin 2% Oint (Nitroglycerin 2% (04/15/17 22:30) Sodium Chloride 0.9% Flush (Ns Flush) (04/15/17 22:30) CKMB (04/15/17 22:55) CKMB% (04/15/17 22:55) Admit Order (Ed Use Only) (04/16/17 00:53) Labs Laboratory Tests Test 04/15/17 22:55 White Blood Count 8.2 TH/MM3 Red Blood Count 3.84 MIL/MM3 Hemoglobin 12.0 GM/DL Hematocrit 36.3 % Mean Corpuscular Volume 94.5 FL Mean Corpuscular Hemoglobin 31.3 PG Mean Corpuscular Hemoglobin Concent 33.1 % Red Cell Distribution Width 15.1 % Platelet Count 272 TH/MM3 Mean Platelet Volume 7.8 FL Neutrophils (%) (Auto) 63.0 % Lymphocytes (%) (Auto) 26.3 % Monocytes (%) (Auto) 7.8 % Eosinophils (%) (Auto) 2.3 % Basophils (%) (Auto) 0.6 % Neutrophils # (Auto) 5.2 TH/MM3 Lymphocytes # (Auto) 2.1 TH/MM3 Monocytes # (Auto) 0.6 TH/MM3 Eosinophils # (Auto) 0.2 TH/MM3 Basophils # (Auto) 0.0 TH/MM3 CBC Comment DIFF FINAL Differential Comment Prothrombin Time 10.7 SEC Prothromb Time International Ratio 1.0 RATIO Activated Partial Thromboplast Time 28.2 SEC D-Dimer Quantitative (PE/DVT) 0.49 MG/L FEU Blood Urea Nitrogen 19 MG/DL Creatinine 0.76 MG/DL Random Glucose 82 MG/DL Total Protein 6.4 GM/DL Albumin 3.3 GM/DL Calcium Level 8.3 MG/DL Magnesium Level 2.1 MG/DL Alkaline Phosphatase 97 U/L Aspartate Amino Transf (AST/SGOT) 19 U/L Alanine Aminotransferase (ALT/SGPT) 32 U/L Total Bilirubin 0.2 MG/DL Sodium Level 143 MEQ/L Potassium Level 4.0 MEQ/L Chloride Level 111 MEQ/L Carbon Dioxide Level 25.5 MEQ/L Anion Gap 7 MEQ/L Estimat Glomerular Filtration Rate 78 ML/MIN Total Creatine Kinase 111 U/L Creatine Kinase MB 1.3 NG/ML Troponin I LESS THAN 0.02 NG/ML B-Type Natriuretic Peptide 3 PG/ML Lipase 200 U/L [facility] Medical Decision Making Medical Screen Exam Complete: Yes Emergency Medical Condition: Yes Medical Record Reviewed: Yes Interpretation(s) Last Impressions Chest X-Ray 04/15/177 Signed Impressions: Service Date/Time: Saturday, April 15, 2017 22:27 - CONCLUSION: No acute disease. Emeka Bauman MD Differential Diagnosis Acute coronary syndrome, versus costochondritis, versus pleurisy, versus pulmonary embolism, versus anxiety disorder, versus acid reflux Narrative Course During the course of the patients emergency department visit, the patients history, examination, and differential diagnosis were reviewed with the patient. The patient had IV access obtained and blood work sent for analysis. The patient was placed on a quality assurance monitor body with oximetry and blood pressure monitoring. The patient's ECG done on arrival shows a sinus rhythm heart rate of 79, no acute ST segment elevation or depression. T waves are inverted in V1 , QRS duration is 77 ms, QTC 406 ms. The patient was initially provided aspirin 324 mg by mouth 1, nitroglycerin 1 inch to the chest wall. The patients laboratory studies were reviewed and remarkable for a CBC that is unremarkable. CMP is remarkable for chloride of 111, BUN 19, GFR 78, calcium 8.3. CPK is 113, troponin I less than 0.02, BNP is 3 , lipase 200. PT PTT within normal limits, d-dimer 0.49 decreased the likelihood of pulmonary embolism in this patient with no other significant risk factors. Radiology studies were reviewed and remarkable for a chest x-ray that shows no evidence of acute cardiopulmonary disease. The patient will be admitted to the chest pain center for rule out serial cardiac enzyme protocol followed by stress testing to further evaluate her chest pain. The patients results were discussed with the patient, including the plan of care. I explained that further testing and/ or monitoring is indicated based on the patients history, examination, and/ or laboratory findings. Therefore, I recommended admission for additional evaluation. The patient expressed understanding and was agreeable with this plan. The patient was admitted to the hospital in guarded condition and sent to a bed under the care of the chest pain center. Diagnosis Primary Impression: Chest pain, rule out acute myocardial infarction Admitting Information Admitting Physician Requests: Radha Monroe MD Apr 15, 2017 23:00
[2017-04-15 23:23] LABS: AUTOMATED NEUTROPHIL # 5.2 TH/MM3 (1.8-7.7); BASOPHIL % 0.6 % (0.0-2.0); EOSINOPHIL # 0.2 TH/MM3 (0-0.4); EOSINOPHIL % 2.3 % (0.0-4.0); HEMATOCRIT 36.3 % (35.0-46.0); HEMO FLAGS DIFF FINAL; LYMPH % 26.3 % (9.0-44.0); LYMPHOCYTE # 2.1 TH/MM3 (1.0-4.8); MEAN CELL VOLUME 94.5 FL (80.0-100.0); MEAN CORPUSCULAR HEMOGLOBIN 31.3 PG (27.0-34.0); MEAN CORPUSCULAR HGB CONC 33.1 % (32.0-36.0); MONO % 7.8 % (0.0-8.0); PLATELET COUNT 272 TH/MM3 (150-450); RED BLOOD COUNT 3.84 MIL/MM3 (4.00-5.30); RED CELL DISTRIBUTION WIDTH 15.1 % (11.6-17.2); WHITE BLOOD COUNT 8.2 TH/MM3 (4.0-11.0)
[2017-04-15 23:35] LABS: APTT (PATIENT) 28.2 SEC (24.3-30.1); PROTHROMBIN TIME - PATIENT 10.7 SEC (9.8-11.6)
[2017-04-15 23:49] LABS: ALT (GPT) 32 U/L (10-53); ANION GAP 7 MEQ/L (5-15); AST (GOT) 19 U/L (15-37); BICARBONATE 25.5 MEQ/L (21.0-32.0); BLOOD UREA NITROGEN 19 MG/DL (7-18); CHLORIDE 111 MEQ/L (98-107); GLOMERULAR FILTRATION RATE 78 ML/MIN (>89); MAGNESIUM 2.1 MG/DL (1.5-2.5); SODIUM (NA) 143 MEQ/L (136-145)
[2017-04-15 23:53] LABS: ALKALINE PHOSPHATASE 97 U/L (45-117); CREATINE KINASE 111 U/L (26-192); TOTAL BILIRUBIN ADULT 0.2 MG/DL (0.2-1.0)
[2017-04-16 00:06] LABS: CKMB 1.3 NG/ML (0.5-3.6)
[2017-04-16 01:00] VITALS: BP 112/71; PULSE 76; RESP 16; O2SAT 96
--- NOTE | 2017-04-16 12:36 | EKG ---
Date Performed: 04/15/2017 Time Performed: 19:56:46 PTAGE: 57 years EKG: Sinus rhythm NORMAL ECG INTERPRETATION BASED ON A DEFAULT AGE OF 40 YEARS Compared to prior tracing no significan t change PREVIOUS TRACING : 06/22/2015 21.02 DOCTOR: Errol Rudd Interpretating Date/Time 04/16/2017 12:30:35
== END 2017-04-16 01:40 | disposition left against medical advice (07) ==
LOC: NEPC 18:46 → UNDOADMOB 04-16 00:55 → NEDA 04-16 00:55 → NEPC 04-16 01:40
DX: R07.9 Chest pain, unspecified (principal); J02.9 Acute pharyngitis, unspecified; R06.02 Shortness of breath; I10 Essential (primary) hypertension; M54.9 Dorsalgia, unspecified; M54.2 Cervicalgia; G89.29 Other chronic pain; Z79.899 Other long term (current) drug therapy
CPT/HCPCS: 71010; 80053; 82550; 82552; 83690; 83735; 83880; 84484; 85025; 85379; 85610; 85730; 93005

== ENCOUNTER 2017-05-09 18:38 | Emergency (ER) | payer MEDICARE, MEDICAID ==
[~2017-05-09] VITALS: Ht 160 cm; Wt 61.5 kg
[2017-05-09 18:39] VITALS: BP 117/80; PULSE 106; RESP 20; TEMP 98.9; O2SAT 95
--- NOTE | 2017-05-09 19:40 | PD ---
HPI Chief Complaint: Back/ Neck Pain or Injury Time Seen by Provider: 19:04 Travel History International Travel<30 days: No Contact w/Intl Traveler<30days: No Traveled to known affect area: No History of Present Illness HPI Patient comes in complaining of right-sided back pain ongoing for 2 days. Patient reports she only has pain when she lays down flat. Sitting up or laying on her side relieves the pain. Patient denies any trauma, fevers, cough , chest pain, shortness of breath, loss or change in bowel or bladder, numbness or tingling anywhere, or trauma. Denies any history of IV drug use. Patient has been taking her pain medication as prescribed. Denies doing anything else for this. History Past Medical Histgory Menopausal: Yes Hx Chemotherapy: No Social History Alcohol Use: Yes (OCASSIONALLY) Tobacco Use: No Allergies-Medications (Allergen,Severity, Reaction): Coded Allergies: ciprofloxacin (Unverified Adverse Reaction, Severe, STIFFENS HER MUSCLES, 04/15/17) Reported Meds & Prescriptions Reported Meds & Active Scripts Active Augmentin (Amoxicillin-Clavulanate) 875-125 Mg Tab 1 Tab PO BID 10 Days Reported Xtampza ER (Oxycodone) 18 Mg Cap BID Elmiron (Pentosan Polysulfate Sodium) 100 Mg Cap 100 Mg PO TID Valtrex (Valacyclovir HCl) 1 Gm Tab 1,000 Mg PO DAILY Omeprazole 40 Mg Cap 40 Mg PO DAILY Cymbalta DR (Duloxetine HCl) 60 Mg Capdr 60 Mg PO BID Buspirone (Buspirone HCl) 15 Mg Tab 15 Mg PO BID Review of Systems Except as stated in HPI: all other systems reviewed are Neg Physical Exam Narrative GENERAL: Well-developed, well nourished, in no acute distress, and non-ill appearing. SKIN: Focused skin assessment warm and dry. HEAD: Atraumatic. Normocephalic. EYES: Pupils equal and round. EOMI. No scleral icterus. No injection or drainage. ENT: No nasal bleeding or discharge. Mucous membranes pink and moist. NECK: Trachea midline. Supple. No nuclear rigidity. CARDIOVASCULAR: Regular rate and rhythm. No murmur appreciated. Radial pulses 2+, intact, and equal bilaterally. RESPIRATORY: No accessory muscle use. No respiratory distress. Clear to auscultation. Breath sounds equal bilaterally. MUSCULOSKELETAL: No obvious deformities. No clubbing. No cyanosis. No edema. Full range of motion. No tenderness or crepitus throughout spinal column. She reports tenderness over right inferior scapula states this is where the pain is. Shoulder:FROM equal BL with passive flexion, extension, Abduction, Adduction , internal/external rotation, and pronation/supination. Sensation equal BL deltoid muscles. Pulses equal BL distal to injury. Capillary refill less than 2 seconds distal to injury and equal BL. FROM distal to injury and equal BL. Strength distal to injury equal BL. NV intact distal to injury equal BL. Flexion and extension of thumb equal BL. Equal strength and movement with abduction/adductions of BL fingers. [facility] Chief strength equal BL. NEUROLOGICAL: Awake and alert. No obvious cranial nerve deficits. Motor grossly within normal limits. Normal speech. PSYCHIATRIC: Appropriate mood and affect; insight and judgment normal. Data Data Last Documented VS Vital Signs Date Time Temp Pulse Resp B/P (MAP) Pulse Ox O2 Delivery O2 Flow Rate FiO2 05/09/17 18:39 98.9 106 20 117/80 (92) 95 Room Air MDM Medical Screen Exam Complete: Yes Emergency Medical Condition: No Narrative Course History and physical exam findings are not consistent with an emergent medical condition. She was given the option of receiving additional care, but has declined. Therefore the appropriate counseling recommendations were discussed with the patient and she was instructed to follow-up with her primary care physician as soon as possible for reevaluation. Patient was also informed of community resources from which she can obtain additional care. She is agreeable and verbalizes an understanding of the proposed plan. The patient states she will immediately return to the emergency department if her current complaints do not improve, new symptoms arise, or emergent condition develops. Patient ambulated out of the emergency department without difficulty. Primary Impression: Encounter for medical screening examination Disposition: EDGO-ED USE ONLY Condition: Stable Merlin Venegas May 09, 2017 19:40
== END 2017-05-09 19:36 | disposition left against medical advice (07) ==
LOC: NEPK 18:38
DX: M54.9 Dorsalgia, unspecified (principal); Z79.899 Other long term (current) drug therapy; Z88.1 Allergy status to other antibiotic agents
CPT/HCPCS: 99281

== ENCOUNTER 2017-06-23 09:07 | Emergency (ER) | payer MEDICARE, MEDICAID ==
[~2017-06-23] VITALS: Ht 160 cm; Wt 60.0 kg
[2017-06-23 09:09] VITALS: BP 122/66; PULSE 84; RESP 12; TEMP 98.3; O2SAT 98
[2017-06-23] MEDS ORDERED: AUGM875T3 PO (09:23)
--- NOTE | 2017-06-23 09:23 | PD ---
HPI Chief Complaint: Bite or Sting Time Seen by Provider: 09:16 Travel History International Travel<30 days: No Contact w/Intl Traveler<30days: No Traveled to known affect area: No History of Present Illness HPI The patient is a 57-year-old female who presents to the emergency department for a bite to the right thumb. The patient states she was bit by her pet dog last night on the volar aspect of the right thumb. The patient states she was picking up her dog to give him a kiss when he bit her. Patient states she has puncture wounds over the distal phalanx of the right thumb, now notes some swelling and drainage. She does have a history of previous dog bites from this dog earlier in the year. She states the dog's immunizations are up-to-date in her tetanus shot is up-to-date. The patient is left-handed. The patient's pain is worse with palpation as well as flexion of the right thumb. She does note some clear to purulent drainage from the wound. She denies any fever, chills, or sweats. PFSH Past Medical History Hx Anticoagulant Therapy: No Arthritis: Yes (degen disc disease) Autoimmune Disease: No Anxiety: Yes Depression: Yes Heart Rhythm Problems: No Cardiac Catheterization: No Cardiovascular Problems: Yes (CAD) High Cholesterol: Yes Chemotherapy: No Cerebrovascular Accident: No Diabetes: Yes Diminished Hearing: No Genitourinary: Yes (LEFT KIDNEY CYST) Heparin Induced Thrombocytopen: No Hypertension: Yes (pt denies) Psychiatric: Yes Respiratory: No Menopausal: Yes Tubal Ligation: Yes Past Surgical History Abdominal Surgery: Yes ( ) Cholecystectomy: Yes Coronary Artery Bypass Graft: No Hysterectomy: No Joint Replacement: Yes (bilat hip) Other Surgery: Yes Social History Alcohol Use: Yes (OCASSIONALLY) Tobacco Use: No Substance Use: No Allergies-Medications (Allergen,Severity, Reaction): Coded Allergies: ciprofloxacin (Unverified Adverse Reaction, Severe, STIFFENS HER MUSCLES, 06/23/17) Reported Meds & Prescriptions Reported Meds & Active Scripts Active Augmentin (Amoxicillin-Clavulanate) 875-125 Mg Tab 1 Tab PO BID 10 Days Reported Xtampza ER (Oxycodone) 18 Mg Cap BID Elmiron (Pentosan Polysulfate Sodium) 100 Mg Cap 100 Mg PO TID Valtrex (Valacyclovir HCl) 1 Gm Tab 1,000 Mg PO DAILY Omeprazole 40 Mg Cap 40 Mg PO DAILY Cymbalta DR (Duloxetine HCl) 60 Mg Capdr 60 Mg PO BID Buspirone (Buspirone HCl) 15 Mg Tab 15 Mg PO BID Review of Systems General / Constitutional: No: Fever Musculoskeletal: Positive: Edema, Pain Skin: Positive Other (as noted in the history of present illness) Neurologic: No: Paresthesia, Sensory Disturbance Physical Exam Narrative GENERAL: Awake, alert, pleasant 57-year-old female who appears her stated age and is in no acute respiratory distress. SKIN: Focused skin assessment warm/dry. Puncture wound to the volar aspect of the right thumb just distal to the interphalangeal joint with some clear drainage. HEAD: Atraumatic. Normocephalic. EYES: No injection or drainage. MUSCULOSKELETAL: Puncture wound to the distal phalanx of the right thumb just distal to the interphalangeal joint. Patient is able flex at the interphalangeal joint. The distal phalanx is slightly edematous. Positive right radial pulse. NEUROLOGICAL: Awake and alert. No obvious cranial nerve deficits. Motor grossly within normal limits. Normal speech. PSYCHIATRIC: Appropriate mood and affect; insight and judgment normal. Data Data Last Documented VS Vital Signs Date Time Temp Pulse Resp B/P (MAP) Pulse Ox O2 Delivery O2 Flow Rate FiO2 06/23/17 09:09 98.3 84 12 122/66 (84) 98 Orders Orders Amoxicil-Clavulanate (Augmentin) (06/23/17 09:30) Wound Care (06/23/17 09:16) Wound Culture And Gram Stain (06/23/17 09:16) [facility] Medical Decision Making Medical Screen Exam Complete: Yes Emergency Medical Condition: Yes Medical Record Reviewed: Yes Differential Diagnosis Differential diagnosis includes dog bite, puncture wound, septic joint, flexor tenosynovitis, cellulitis. Narrative Course The patient's wound was cleaned with Betadine and a dry dressing was applied. The patient was administered Augmentin 875 mg orally. The patient is advised to follow-up with her primary physician. Monitor for signs of increasing infection. Return if symptoms worsen or progress. Diagnosis Primary Impression: Dog bite Qualified Codes: W54.0XXA - Bitten by dog, initial encounter Patient Instructions: General Instructions Additional Instructions: Wound care instructions. Augmentin as directed. Clean the area twice daily. Return if symptoms worsen or progress. Follow-up with your primary physician in 48 hours for reevaluation of wound. Med/Other Pt SpecificInfo: Prescription(s) given Scripts Amoxicillin-Clavulanate (Augmentin) 875-125 Mg Tab 1 TAB PO BID for Infection for 10 Days, #20 TAB 0 Refills Prov: Fernando Lane MD 06/23/17 Disposition: 01 DISCHARGE HOME Condition: Stable Fernando Lane MD Jun 23, 2017 09:23
[2017-06-23] MEDS ORDERED: AMOXICILLIN/CLAVULANATE K 875 MG TAB PO ONE (09:30)
== END 2017-06-23 09:44 | disposition home or self-care (01) ==
LOC: NEPD 09:07
DX: S61.051A Open bite of right thumb without damage to nail, initial encounter (principal); W54.0XXA Bitten by dog, initial encounter
CPT/HCPCS: 87070; 87205; 99283

== ENCOUNTER 2017-08-07 06:05 | Day surgery (SDC) | payer MEDICARE, OTHER ==
[~2017-08-07] VITALS: Ht 160 cm; Wt 61.4 kg
[2017-08-07 06:39] VITALS: BP 109/84; PULSE 79; RESP 20; TEMP 98.7; O2SAT 92
[2017-08-07] MEDS ORDERED: GABA600T PO (06:44)
[2017-08-07] MEDS ORDERED: TRAM50TA PO (06:44)
[2017-08-07] MEDS ORDERED: [UNRECOGNIZED DRUG - CODE] (06:44)
[2017-08-07] MEDS ORDERED: TIZA4CAP3 PO (06:44)
[2017-08-07] MEDS ORDERED: PANT40TA3 PO (06:44)
[2017-08-07] MEDS ORDERED: SODIUM CHLOR 0.9% 1000 ML IV SCH (06:45)
[2017-08-07] MEDS ORDERED: fentaNYL CITRATE 250 MCG/5 ML AMP ONE (07:30)
[2017-08-07] MEDS ORDERED: MIDAZOLAM HCL 2 MG/2 ML VIAL ONE (07:30)
[2017-08-07] MEDS ORDERED: LIDOCAINE HCL 1% 20 ML VIAL ONE (07:49)
--- NOTE | 2017-08-07 08:49 | PD.RAD ---
Post CT Procedure Prog Note Pre Procedure Diagnosis: (1) Hepatic cyst Post Procedure Diagnosis: (1) Hepatic cyst Procedure Date: Aug 07, 2017 Supervising Radiologist: Jayesh Martínez Proceduralist/Assist: winsome motley Estimated blood loss: none Anesthesia: Conscious Sedation Plan of Activity Patient to Unit: [facility] Patient Condition: Good See PACS Report for procedural detail/treatment Jayesh Martínez MD Aug 07, 2017 08:49
[2017-08-07 09:00] VITALS: BP 107/67; PULSE 70; RESP 20; TEMP 98.3; O2SAT 90
[2017-08-07 09:15] VITALS: BP 119/77; PULSE 75; RESP 20; O2SAT 98
[2017-08-07 09:45] VITALS: BP 118/72; PULSE 74; RESP 20; O2SAT 97
[2017-08-07 10:15] VITALS: BP 98/60; PULSE 81; RESP 20; O2SAT 97
[2017-08-07 10:45] VITALS: BP 110/71; PULSE 74; RESP 20; O2SAT 97
--- NOTE | 2017-08-07 16:41 | RADRPT ---
EXAM DATE/TIME: 08/07/2017 08:18 [place] COMPARISON: No previous studies available for comparison. INDICATIONS : Liver cyst aspiration. SEDATION TIME: 30 minutes MEDICATION(S): 1.) 3.5 mg midazolam (Versed) IV 2.) 200 mcg fentanyl (Sublimaze) IV DEVICE(S): 1.) 18 gauge Edmondson blunt needle FLUID: Total volume of 25 cc of clear, yellow fluid was removed. Fluid was sent for laboratory ordered studies. MEDICAL HISTORY : Gastroesophageal reflux disease. Diabetes mellitus type 2. Cystic liver disease. SURGICAL HISTORY : Cholecystectomy. ENCOUNTER: Initial ACUITY: 1 day PAIN SCORE: 0/10 LOCATION: Liver PROCEDURE: 1.) Conscious sedation with continuous EKG and oximetry monitoring. 2.) EKG and oximetry remained stable throughout the procedure. PROCEDURE : CT guided aspiration of a hepatic cyst seen anteriorly in the left lobe The risks, benefits and alternatives to the procedure were explained and verbal and written consent w as obtained. Using automated exposure control and adjustment of the mA and/or kV according to patien t size, radiation dose was kept as low as reasonably achievable to obtain optimal diagnostic quality images. The site was prepped in sterile fashion. Full sterile technique was used, including cap, ma sk, sterile gloves and gown and a large sterile sheet. Hand hygiene and 2% chlorhexidine and/or beta dine/alcohol prep was utilized per protocol for cutaneous antisepsis. The skin and subcutaneous tiss ues were infiltrated with local anesthetic solution. DICOM format image data is available electronic ally for review and comparison. Edmondson needle placed within the liver cyst anteriorly from a right anterior approach. CONCLUSION: Uncomplicated hepatic cyst aspiration as above. Jayesh Martínez MD on August 07, 2017 at 16:38 Board Certified Radiologist. This report was verified electronically.
== END 2017-08-07 11:08 | disposition home or self-care (01) ==
LOC: HRAD 06:05 → HRIP 06:10 → HRAD 11:08
PROVIDERS: ATTEND Internal Medicine Gastroenterology
DX: K76.89 Other specified diseases of liver (principal); Q44.6 Cystic disease of liver; E11.9 Type 2 diabetes mellitus without complications; K21.9 Gastro-esophageal reflux disease without esophagitis; R77.2 Abnormality of alphafetoprotein; G89.4 Chronic pain syndrome; N94.89 Other specified conditions associated with female genital organs and menstrual cycle; E78.5 Hyperlipidemia, unspecified; K62.5 Hemorrhage of anus and rectum; M47.814 Spondylosis without myelopathy or radiculopathy, thoracic region; M47.816 Spondylosis without myelopathy or radiculopathy, lumbar region; K59.00 Constipation, unspecified
CPT/HCPCS: 10160; 77012; 88173; J2250; J3010; J7030

== ENCOUNTER 2017-09-23 11:27 | Observation (INO) | payer MEDICARE, MEDICAID ==
[~2017-09-23] VITALS: Ht 160 cm; Wt 62.0 kg
[~2017-09-23 11:27] MED LIST changes: -AUGM875T3 PO; +GABA600T PO; -OMEP40CA2 PO; -OXYC1CAP5; +PANT40TA3 PO; +TIZA4CAP3 PO; +TRAM50TA PO; -VALT1TAB PO; +[UNRECOGNIZED DRUG - CODE]
[2017-09-23 11:33] VITALS: BP 117/60; PULSE 96; RESP 20; TEMP 98.2; O2SAT 98
--- NOTE | 2017-09-23 11:47 | PD ---
HPI Chief Complaint: Chest Pain Time Seen by Provider: 11:42 Travel History International Travel<30 days: No Contact w/Intl Traveler<30days: No Traveled to known affect area: No History of Present Illness HPI 57-year-old female with history of CAD, A. fib, anxiety, chronic pain, presents to emergency department for evaluation of chest pain. This began substernally 3 days ago. It is a burning, aching sensation. It has associated nausea, lightheadedness, and diaphoresis. 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 Freeman, because she reports she did not follow through with the plan of care. She states she has "some heart medication" but has not been taking it. Prior to her onset of chest pain , patient was started on a Subutex transdermal patch. She thinks this may be exacerbating her symptoms. She denies any recent illnesses. She is uncertain if the pain radiates anywhere she is in constant pain. She denies any other illnesses, fever, or chills. She has no other symptoms to report. PFSH Past Medical History Hx Anticoagulant Therapy: No Arthritis: Yes (degen disc disease) Autoimmune Disease: No Anxiety: Yes Depression: Yes Heart Rhythm Problems: No Cancer: No Cardiac Catheterization: No Cardiovascular Problems: Yes (CAD) High Cholesterol: Yes Chemotherapy: No Cerebrovascular Accident: No Diabetes: No Diminished Hearing: No Endocrine: No Genitourinary: Yes (LEFT KIDNEY CYST) Hepatitis: Yes (B) Hiatal Hernia: No Heparin Induced Thrombocytopen: No Hypertension: Yes (pt denies) Immune Disorder: No Musculoskeletal: No (ARTHRITIS,DDD,OSTEOPENIA,POROSIS) Neurologic: No Psychiatric: Yes (ANXIETY DEPRESSION) Reproductive: No Respiratory: No Thyroid Disease: No Menopausal: Yes Tubal Ligation: Yes Past Surgical History Abdominal Surgery: Yes ( ) AICD: No Cardiac Surgery: No Cholecystectomy: Yes Coronary Artery Bypass Graft: No Ear Surgery: No Endocrine Surgery: No Eye Surgery: No Genitourinary Surgery: No Gynecologic Surgery: No Hysterectomy: No Joint Replacement: Yes (bilat hip) Oral Surgery: No Pacemaker: No Thoracic Surgery: No Other Surgery: Yes Social History Alcohol Use: Yes (OCASSIONALLY) Tobacco Use: No Substance Use: No Allergies-Medications (Allergen,Severity, Reaction): Coded Allergies: ciprofloxacin (Unverified Adverse Reaction, Severe, STIFFENS HER MUSCLES, 09/23/17) Reported Meds & Prescriptions Reported Meds & Active Scripts Active Reported Soma (Carisoprodol) 250 Mg Tab 250 Mg PO TID Omeprazole 20 Mg Tab 20 Mg PO DAILY Valtrex (Valacyclovir HCl) 1,000 Mg Tab 1 Gm PO DAILY Mobic (Meloxicam) 15 Mg Tab 15 Mg PO DAILY Isosorbide Mononitrate ER (Isosorbide Mononitrate) 60 Mg Tab 60 Mg PO DAILY Cymbalta DR (Duloxetine HCl) 60 Mg Capdr 60 Mg PO DAILY Review of Systems Except as stated in HPI: all other systems reviewed are Neg Physical Exam Narrative GENERAL: Well-nourished female patient, ambulatory and in no acute distress. SKIN: Focused skin assessment warm/dry. HEAD: Atraumatic. Normocephalic. EYES: Pupils equal and round. No scleral icterus. No injection or drainage. ENT: No nasal bleeding or discharge. Mucous membranes pink and moist. NECK: Trachea midline. No JVD. CARDIOVASCULAR: Regular rate and irregular rhythm. 2/6 systolic murmur appreciated. RESPIRATORY: No accessory muscle use. Clear to auscultation. Breath sounds equal bilaterally. GASTROINTESTINAL: Abdomen soft, non-tender, nondistended. Hepatic and splenic margins not palpable. MUSCULOSKELETAL: No obvious deformities. No clubbing. No cyanosis. No edema. NEUROLOGICAL: Awake and alert. No obvious cranial nerve deficits. Motor grossly within normal limits. Normal speech. PSYCHIATRIC: Appropriate mood and affect; insight and judgment normal. Data Data Last Documented VS Vital Signs Date Time Temp Pulse Resp B/P (MAP) Pulse Ox O2 Delivery O2 Flow Rate FiO2 09/23/17 12:03 96 Room Air 09/23/17 12:03 88 18 09/23/17 11:33 98.2 117/60 (79) Orders Orders Electrocardiogram (09/23/17 11:47) Basic Metabolic Panel (Bmp) (09/23/17 11:47) Ckmb (Isoenzyme) Profile (09/23/17 11:47) Complete Blood Count With Diff (09/23/17 11:47) Magnesium (Mg) (09/23/17 11:47) Prothrombin Time / Inr (Pt) (09/23/17 11:47) Act Partial Throm Time (Ptt) (09/23/17 11:47) Troponin I (3/18/18 11:47) Chest, Single Ap (09/23/17 11:47) Ecg Monitoring (09/23/17 11:47) Bilateral Bp Monitoring (09/23/17 11:47) Iv Access Insert/Monitor (09/23/17 11:47) Oximetry (09/23/17 11:47) Oxygen Administration (09/23/17 11:47) Aspirin Chew (Aspirin Chew) (09/23/17 12:00) Sodium Chloride 0.9% Flush (Ns Flush) (09/23/17 12:00) Nitroglycerin Sl (Nitrostat Sl) (09/23/17 12:00) Sodium Chlorid 0.9% 500 Ml Inj (Ns 500 M (09/23/17 12:00) Admit Order (Ed Use Only) (09/23/17 13:02) Labs Laboratory Tests Test 09/23/17 12:17 White Blood Count 8.5 TH/MM3 Red Blood Count 4.90 MIL/MM3 Hemoglobin 14.9 GM/DL Hematocrit 44.8 % Mean Corpuscular Volume 91.4 FL Mean Corpuscular Hemoglobin 30.4 PG Mean Corpuscular Hemoglobin Concent 33.2 % Red Cell Distribution Width 15.0 % Platelet Count 367 TH/MM3 Mean Platelet Volume 7.6 FL Neutrophils (%) (Auto) 54.4 % Lymphocytes (%) (Auto) 33.3 % Monocytes (%) (Auto) 10.2 % Eosinophils (%) (Auto) 1.4 % Basophils (%) (Auto) 0.7 % Neutrophils # (Auto) 4.7 TH/MM3 Lymphocytes # (Auto) 2.8 TH/MM3 Monocytes # (Auto) 0.9 TH/MM3 Eosinophils # (Auto) 0.1 TH/MM3 Basophils # (Auto) 0.1 TH/MM3 CBC Comment DIFF FINAL Differential Comment Prothrombin Time 10.5 SEC Prothromb Time International Ratio 1.0 RATIO Activated Partial Thromboplast Time 25.1 SEC Blood Urea Nitrogen 19 MG/DL Creatinine 0.99 MG/DL Random Glucose 86 MG/DL Calcium Level 9.7 MG/DL Magnesium Level 2.1 MG/DL Sodium Level 138 MEQ/L Potassium Level 4.0 MEQ/L Chloride Level 102 MEQ/L Carbon Dioxide Level 27.3 MEQ/L Anion Gap 9 MEQ/L Estimat Glomerular Filtration Rate 57 ML/MIN Total Creatine Kinase 74 U/L Troponin I LESS THAN 0.02 NG/ML MDM Medical Decision Making Medical Screen Exam Complete: Yes Emergency Medical Condition: Yes Medical Record Reviewed: Yes Differential Diagnosis Angina stable versus unstable versus pleuritic pain versus chest wall pain versus anxiety versus indigestion Narrative Course 57-year-old female presents to emergency department for evaluation of chest pain. With this pain there is associated diaphoresis, lightheadedness, and nausea. Patient does have history of CAD. She admits to not taking her cardiac meds. Laboratory Tests Test 09/23/17 12:17 White Blood Count 8.5 TH/MM3 Red Blood Count 4.90 MIL/MM3 Hemoglobin 14.9 GM/DL Hematocrit 44.8 % Mean Corpuscular Volume 91.4 FL Mean Corpuscular Hemoglobin 30.4 PG Mean Corpuscular Hemoglobin Concent 33.2 % Red Cell Distribution Width 15.0 % Platelet Count 367 TH/MM3 Mean Platelet Volume 7.6 FL Neutrophils (%) (Auto) 54.4 % Lymphocytes (%) (Auto) 33.3 % Monocytes (%) (Auto) 10.2 % Eosinophils (%) (Auto) 1.4 % Basophils (%) (Auto) 0.7 % Neutrophils # (Auto) 4.7 TH/MM3 Lymphocytes # (Auto) 2.8 TH/MM3 Monocytes # (Auto) 0.9 TH/MM3 Eosinophils # (Auto) 0.1 TH/MM3 Basophils # (Auto) 0.1 TH/MM3 CBC Comment DIFF FINAL Differential Comment Prothrombin Time 10.5 SEC Prothromb Time International Ratio 1.0 RATIO Activated Partial Thromboplast Time 25.1 SEC Blood Urea Nitrogen 19 MG/DL Creatinine 0.99 MG/DL Random Glucose 86 MG/DL Calcium Level 9.7 MG/DL Magnesium Level 2.1 MG/DL Sodium Level 138 MEQ/L Potassium Level 4.0 MEQ/L Chloride Level 102 MEQ/L Carbon Dioxide Level 27.3 MEQ/L Anion Gap 9 MEQ/L Estimat Glomerular Filtration Rate 57 ML/MIN Total Creatine Kinase 74 U/L Troponin I LESS THAN 0.02 NG/ML Chest x-rays reviewed. Patient will be admitted to the chest pain center for further evaluation of her symptoms. Diagnosis Primary Impression: Chest pain Qualified Codes: R07.9 - Chest pain, unspecified Admitting Information Admitting Physician Requests: Observation Condition: Stable Rubia Ordaz Sep 23, 2017 11:47
[2017-09-23] MEDS ORDERED: SODIUM CHLORIDE 0.9% FLUSH 10 ML FLUSH IVF PRN (12:00)
[2017-09-23] MEDS ORDERED: ASPIRIN 81 MG CHEW TAB PO ONE (12:00)
[2017-09-23] MEDS ORDERED: SODIUM CHLORID 0.9% 500 ML INJ 500 ML IV ONE (12:00)
[2017-09-23 12:03] VITALS: PULSE 88; RESP 18; O2SAT 96
[2017-09-23] MEDS: NITROGLYCERIN 0.4 MG SL 25 TABS/BTL SL SCH ×3 (12:05→12:13)
[2017-09-23 12:25] LABS: AUTOMATED NEUTROPHIL # 4.7 TH/MM3 (1.8-7.7); BASOPHIL # 0.1 TH/MM3 (0-0.2); BASOPHIL % 0.7 % (0.0-2.0); EOSINOPHIL # 0.1 TH/MM3 (0-0.4); EOSINOPHIL % 1.4 % (0.0-4.0); HEMATOCRIT 44.8 % (35.0-46.0); HEMOGLOBIN 14.9 GM/DL (11.6-15.3); LYMPH % 33.3 % (9.0-44.0); LYMPHOCYTE # 2.8 TH/MM3 (1.0-4.8); MEAN CELL VOLUME 91.4 FL (80.0-100.0); MEAN CORPUSCULAR HEMOGLOBIN 30.4 PG (27.0-34.0); MEAN CORPUSCULAR HGB CONC 33.2 % (32.0-36.0); MEAN PLATELET VOLUME 7.6 FL (7.0-11.0); MONO % 10.2 % (0.0-8.0); MONOCYTE # 0.9 TH/MM3 (0-0.9); NEUT % 54.4 % (16.0-70.0); PLATELET COUNT 367 TH/MM3 (150-450); WHITE BLOOD COUNT 8.5 TH/MM3 (4.0-11.0)
[2017-09-23 12:35] LABS: PROTHROMBIN TIME - PATIENT 10.5 SEC (9.8-11.6)
--- NOTE | 2017-09-23 12:36 | RADRPT ---
EXAM DATE/TIME: 09/23/2017 12:10 [facility] COMPARISON: CHEST SINGLE AP, April 15, 2017, 22:27. INDICATIONS : Chest pain MEDICAL HISTORY : Hypertension. Cardiovascular disease. Chronic obstructive pulmonary disease. SURGICAL HISTORY : Bilateral hip arthroplasties ENCOUNTER: Initial ACUITY: 3 days PAIN SCORE: 5/10 LOCATION: chest midline. FINDINGS: A single view of the chest demonstrates the lungs to be symmetrically aerated without evidence of mas s, infiltrate or effusion. The cardiomediastinal contours are unremarkable. Osseous structures are intact. CONCLUSION: No acute disease. Michelle Long MD on September 23, 2017 at 12:33 Board Certified Radiologist. This report was verified electronically.
[2017-09-23 12:45] LABS: BICARBONATE 27.3 MEQ/L (21.0-32.0); BLOOD UREA NITROGEN 19 MG/DL (7-18); CALCIUM 9.7 MG/DL (8.5-10.1); CHLORIDE 102 MEQ/L (98-107); CREATININE 0.99 MG/DL (0.50-1.00); GLOMERULAR FILTRATION RATE 57 ML/MIN (>89); GLUCOSE,RANDOM 86 MG/DL (74-106); MAGNESIUM 2.1 MG/DL (1.5-2.5); SODIUM (NA) 138 MEQ/L (136-145)
[2017-09-23 12:49] LABS: TROPONIN I LESS THAN 0.02 NG/ML (0.02-0.05)
[2017-09-23] MEDS ORDERED: SOMA250T PO (12:54)
[2017-09-23] MEDS ORDERED: MOBI15TA PO (12:54)
[2017-09-23] MEDS ORDERED: VALT1TAB PO (12:54)
[2017-09-23] MEDS ORDERED: ISOS60TA PO (12:54)
[2017-09-23] MEDS ORDERED: OMEP20TA93 PO (12:54)
[2017-09-23] MEDS ORDERED: ONDANSETRON HCL 4 MG/2 ML VIAL IV PUSH PRN (14:30)
[2017-09-23] MEDS ORDERED: ACETAMINOPHEN 500 MG CPLT PO PRN (14:30)
[2017-09-23 14:45] VITALS: BP 139/68; PULSE 86; RESP 18; O2SAT 94
--- NOTE | 2017-09-23 14:54 | HHI.HP ---
HPI Primary Care Physician No Primary Care Physician Chief Complaint Chest pain History of Present Illness This is a [id number] female presents to ED with complaint of chest discomfort for years. She states she has different types of chest discomforts in different locations of her chest. When asked how long it last patient states it can last a while. This cannot really recall affecting her breathing or making a nauseous or diaphoretic. Has found nothing to bring them on or nothing to worsen or improve them. Was following her brick baker but states that she was discharged from Dr. Nunez's practice recently and her primary care physician also discharged her from that practice. She still is able to follow up with her hand paint mixer. Denies recent illness. Denies fevers or chills. States that a few months ago she was prescribed Imdur by her brick baker and took it for a week. States she was feeling better but stopped taking it. Review of Systems General: Patient denies fevers, chills, and recent travel. HEENT: Patient denies headache, sore throat, difficulty swallowing. Cardiovascular: Has the chest discomfort as mentioned above. Denies sensation of heart beating rapidly or irregularly. No syncope. Denies diaphoresis. Respiratory: Denies shortness of breath or inspirational chest discomfort. Denies coughing wheezing or hemoptysis. GI: Patient denies nausea, vomiting, diarrhea, abdominal pain, bloody stools. Musculoskeletal: Patient denies joint pain or edema. Denies calf pain or edema. Neurovascular: Patient denies numbness, tingling, weakness in extremities. Denies headache. Endocrine: Denies polyuria and polydipsia. Hematologic: Denies easy bruising. Skin: Denies rash or itching. Past Family Social History Allergies: Coded Allergies: ciprofloxacin (Unverified Adverse Reaction, Severe, STIFFENS HER MUSCLES, 09/23/17) Past Medical History Chronic back pain. Depression. Denies hypertension, diabetes, and CAD. States she has high LDL but has never been medicated. Past Surgical History Bilateral hips. Cholecystectomy. Reported Medications Reported Meds & Active Scripts Active Reported Omeprazole 20 Mg Tab 20 Mg PO DAILY Mobic (Meloxicam) 15 Mg Tab 15 Mg PO DAILY Active Ordered Medications Current Medications Medications (Trade) Dose Ordered Sig/Yaya Route Start Time Stop Time Status Last Admin (NS Flush) 2 ml UNSCH PRN IVF 09/23/17 12:00 (Protonix) 20 mg DAILY PO 09/24/17 09:00 (Tylenol) 500 mg Q4H PRN PO 09/23/17 14:30 (Zofran Inj) 4 mg Q6H PRN IV PUSH 09/23/17 14:30 (Aspirin) 325 mg DAILY PO 09/24/17 09:00 (Xanax) 0.25 mg Q8H PRN PO 09/23/17 14:30 Family History She believes her father had CAD but at 90 of an [place]. Social History Non-smoker. Denies alcohol or illicit drugs. Physical Exam Vital Signs Vital Signs Date Time Temp Pulse Resp B/P (MAP) Pulse Ox O2 Delivery O2 Flow Rate FiO2 09/23/17 12:03 96 Room Air 09/23/17 12:03 88 18 96 Room Air 09/23/17 12:03 92 18 96 09/23/17 11:33 98.2 96 20 117/60 (79) 98 Physical Exam GENERAL: This is a well-nourished, well-developed patient, in no apparent distress. Patient speaks in clear complete sentences. Patient is pleasant. HEENT: Head is atraumatic and normocephalic. Neck is supple without lymphadenopathy and trachea is midline. No JVD or carotid bruits. CARDIOVASCULAR: Regular rate and rhythm without murmurs, gallops, or rubs. RESPIRATORY: Clear to auscultation. Breath sounds equal bilaterally. No wheezes , rales, or rhonchi. Chest wall is tender. No use of accessory muscles. GASTROINTESTINAL: Abdomen is nontender, nondistended. Abdomen soft. No obvious pulsatile mass or bruit. No CVA tenderness. Strong femoral pulses bilaterally. Normal bowel sounds in all quadrants. MUSCULOSKELETAL: Patient is moving upper and lower extremities freely. No calf tenderness or edema, no Homans sign. Strong pulses in upper and lower extremities. NEUROLOGICAL: Patient is alert and oriented. Cranial nerves 2-12 are grossly intact. No focal deficits and speech is clear. SKIN: No rash and turgor is normal. Laboratory Laboratory Tests Test 09/23/17 12:17 White Blood Count 8.5 Red Blood Count 4.90 Hemoglobin 14.9 Hematocrit 44.8 Mean Corpuscular Volume 91.4 Mean Corpuscular Hemoglobin 30.4 Mean Corpuscular Hemoglobin Concent 33.2 Red Cell Distribution Width 15.0 Platelet Count 367 Mean Platelet Volume 7.6 Neutrophils (%) (Auto) 54.4 Lymphocytes (%) (Auto) 33.3 Monocytes (%) (Auto) 10.2 Eosinophils (%) (Auto) 1.4 Basophils (%) (Auto) 0.7 Neutrophils # (Auto) 4.7 Lymphocytes # (Auto) 2.8 Monocytes # (Auto) 0.9 Eosinophils # (Auto) 0.1 Basophils # (Auto) 0.1 CBC Comment DIFF FINAL Differential Comment Prothrombin Time 10.5 Prothromb Time International Ratio 1.0 Activated Partial Thromboplast Time 25.1 Blood Urea Nitrogen 19 Creatinine 0.99 Random Glucose 86 Calcium Level 9.7 Magnesium Level 2.1 Sodium Level 138 Potassium Level 4.0 Chloride Level 102 Carbon Dioxide Level 27.3 Anion Gap 9 Estimat Glomerular Filtration Rate 57 Total Creatine Kinase 74 Troponin I LESS THAN 0.02 Result Diagram: 09/23/17 1217 09/23/17 1217 Imaging Chest x-ray reveals nothing acute. Course EKG is sinus rhythm with no significant ST segment depressions or elevations. Caprini VTE Risk Assessment Caprini VTE Risk Assessment: Mod/High Risk (score >= 2) Caprini Risk Assessment Model Point Value = 1 Point Value = 2 Point Value = 3 Point Value = 5 Age 41-60 Minor surgery BMI > 25 kg/m2 Swollen legs Varicose veins or History of unexplained or recurrent spontaneous Oral contraceptives or hormone replacement Sepsis (< 1 month) Serious lung disease, including pneumonia (< 1 month) Abnormal pulmonary function Acute myocardial infarction Congestive heart failure (< 1 month) History of inflammatory bowel disease Medical patient at bed rest Age 61-74 Arthroscopic surgery Major open surgery (> 45 min) Laparoscopic surgery (> 45 min) Malignancy Confined to bed (> 72 hours) Immobilizing plaster cast Central venous access Age >= 75 History of VTE Family history of VTE Factor V Leiden Prothrombin [id number] Lupus anticoagulant Anticardiolipin antibodies Elevated serum homocysteine Heparin-induced thrombocytopenia Other congenital or acquired thrombophilia Stroke (< 1 month) Elective arthroplasty Hip, pelvis, or leg fracture Acute spinal cord injury (< 1 month) Prophylaxis Regimen Total Risk Factor Score Risk Level Prophylaxis Regimen 0-1 Low Early ambulation 2 Moderate Order ONE of the following: *Sequential Compression Device (SCD) *Heparin 5000 units SQ BID 3-4 Higher Order ONE of the following medications: *Heparin 5000 units SQ TID *Enoxaparin/Lovenox 40 mg SQ daily (WT < 150 kg, CrCl > 30 mL/min) *Enoxaparin/Lovenox 30 mg SQ daily (WT < 150 kg, CrCl > 10-29 mL/min) *Enoxaparin/Lovenox 30 mg SQ BID (WT < 150 kg, CrCl > 30 mL/min) AND/OR *Sequential Compression Device (SCD) 5 or more Highest Order ONE of the following medications: *Heparin 5000 units SQ TID (Preferred with Epidurals) *Enoxaparin/Lovenox 40 mg SQ daily (WT < 150 kg, CrCl > 30 mL/min) *Enoxaparin/Lovenox 30 mg SQ daily (WT < 150 kg, CrCl > 10-29 mL/min) *Enoxaparin/Lovenox 30 mg SQ BID (WT < 150 kg, CrCl > 30 mL/min) AND *Sequential Compression Device (SCD) Assessment and Plan Assessment and Plan * Atypical chest pain: Patient will continue to have serial cardiac enzymes and EKGs for ruling out purposes. She was seen by Dr. Contreras of cardiology in the chest pain center. She will have a Lexiscan in the morning if she rules out. She should be discharged home if her stress test is nonischemic with instructions to follow-up with PCP. Return to ED for interval issues. * Chronic pain: She will keep her patch on. States has been on for 3 days and is good for 7 days. Patient is stable at this time. She is agreeable to this plan Jordan Bernstein Sep 23, 2017 14:54
[2017-09-23] MEDS: ALPRAZolam 0.25 MG TAB PO PRN ×2 (15:10→23:50)
[2017-09-23 16:03] LABS: TROPONIN I LESS THAN 0.02 NG/ML (0.02-0.05)
[2017-09-23 16:47] VITALS: PULSE 83
[2017-09-23 18:54] LABS: TROPONIN I LESS THAN 0.02 NG/ML (0.02-0.05)
[2017-09-23] MEDS ORDERED: NITROGLYCERIN 0.4 MG SL 25 TABS/BTL SL ONE ×2 (19:43→19:54)
[2017-09-23 19:46] VITALS: BP 110/70; PULSE 84; RESP 18; TEMP 98; O2SAT 95
[2017-09-23 20:00] VITALS: PULSE 87
[2017-09-24 00:10] VITALS: PULSE 66
[2017-09-24 04:36] VITALS: PULSE 63
[2017-09-24 06:36] VITALS: BP 108/63; PULSE 74; RESP 18; TEMP 98.3; O2SAT 95
[2017-09-24 07:49] VITALS: PULSE 69
[2017-09-24] MEDS: ALPRAZolam 0.25 MG TAB PO PRN (07:58)
--- NOTE | 2017-09-24 08:53 | PD.CARD.PN ---
Subjective Subjective Remarks No further chest discomfort overnight. Objective Medications Current Medications Medications (Trade) Dose Ordered Sig/Yaya Route Start Time Stop Time Status Last Admin (NS Flush) 2 ml UNSCH PRN IVF 09/23/17 12:00 (Protonix) 20 mg DAILY PO 09/24/17 09:00 09/24/17 07:57 (Tylenol) 500 mg Q4H PRN PO 09/23/17 14:30 (Zofran Inj) 4 mg Q6H PRN IV PUSH 09/23/17 14:30 (Aspirin) 325 mg DAILY PO 09/24/17 09:00 09/24/17 07:57 (Xanax) 0.25 mg Q8H PRN PO 09/23/17 14:30 09/24/17 07:58 Vital Signs / I&O Vital Signs Date Time Temp Pulse Resp B/P (MAP) Pulse Ox O2 Delivery O2 Flow Rate FiO2 09/24/17 07:49 69 09/24/17 06:36 98.3 74 18 108/63 (78) 95 09/24/17 04:36 63 09/24/17 00:10 66 09/23/17 20:22 21 09/23/17 20:00 87 09/23/17 19:46 98.0 84 18 110/70 (83) 95 09/23/17 16:47 83 09/23/17 15:12 09/23/17 14:45 86 18 139/68 (91) 94 Room Air 09/23/17 12:03 96 Room Air 09/23/17 12:03 88 18 96 Room Air 09/23/17 12:03 92 18 96 09/23/17 11:33 98.2 96 20 117/60 (79) 98 I/O 09/23/17 09/23/17 09/23/17 09/24/17 09/24/17 09/24/17 07:00 15:00 23:00 07:00 15:00 23:00 Intake Total 500 ml Balance 500 ml Intake IV Total 500 ml Physical Exam GENERAL: Alert WN, WD, NAD, anxious, female HEAD: NC, AT CV: RRR, without murmur, rub, gallop, no JVD, S1-S2 no S3-S4. RESP: Clear lungs throughout bilateral, no crackles, wheeze, rhonchi, symmetrical chest rise, nonlabored, able to speak in full sentences MS: Normal tone 4 extremities, nontender, no obvious deformities, full range of motion PSYCH: A+O 3, appropriate speech, mood, insight and judgment SKIN: Normal turgor, normal texture Laboratory Laboratory Tests Test 09/23/17 12:17 09/23/17 15:10 09/23/17 18:10 White Blood Count 8.5 TH/MM3 Red Blood Count 4.90 MIL/MM3 Hemoglobin 14.9 GM/DL Hematocrit 44.8 % Mean Corpuscular Volume 91.4 FL Mean Corpuscular Hemoglobin 30.4 PG Mean Corpuscular Hemoglobin Concent 33.2 % Red Cell Distribution Width 15.0 % Platelet Count 367 TH/MM3 Mean Platelet Volume 7.6 FL Neutrophils (%) (Auto) 54.4 % Lymphocytes (%) (Auto) 33.3 % Monocytes (%) (Auto) 10.2 % Eosinophils (%) (Auto) 1.4 % Basophils (%) (Auto) 0.7 % Neutrophils # (Auto) 4.7 TH/MM3 Lymphocytes # (Auto) 2.8 TH/MM3 Monocytes # (Auto) 0.9 TH/MM3 Eosinophils # (Auto) 0.1 TH/MM3 Basophils # (Auto) 0.1 TH/MM3 CBC Comment DIFF FINAL Differential Comment Prothrombin Time 10.5 SEC Prothromb Time International Ratio 1.0 RATIO Activated Partial Thromboplast Time 25.1 SEC Blood Urea Nitrogen 19 MG/DL Creatinine 0.99 MG/DL Random Glucose 86 MG/DL Calcium Level 9.7 MG/DL Magnesium Level 2.1 MG/DL Sodium Level 138 MEQ/L Potassium Level 4.0 MEQ/L Chloride Level 102 MEQ/L Carbon Dioxide Level 27.3 MEQ/L Anion Gap 9 MEQ/L Estimat Glomerular Filtration Rate 57 ML/MIN Total Creatine Kinase 74 U/L 38 U/L 63 U/L Troponin I LESS THAN 0.02 NG/ML LESS THAN 0.02 NG/ML LESS THAN 0.02 NG/ML Imaging Last 24 hours Impressions Chest X-Ray 09/23/17 1147 Signed Impressions: Service Date/Time: Saturday, September 23, 2017 12:10 - CONCLUSION: No acute disease. Michelle Long MD Assessment and Plan Assessment and Plan #1 Atypical chest pain-ruled out with 3 sets of EKGs and cardiac enzymes. Previously evaluated by Dr. Contreras. Proceed with plan to complete chemical cardiac testing this morning. If unremarkable, plan to discharge home with follow up with PCP. #2 History of anxiety-continue xanax 0.25mg PRN Cookie Reicnos Sep 24, 2017 08:53
[2017-09-24] MEDS ORDERED: ASPIRIN 325 MG TAB PO SCH (09:00)
[2017-09-24] MEDS ORDERED: PANTOPRAZOLE SOD 20 MG DELAYED RELEASE TAB PO SCH (09:00)
[2017-09-24] MEDS ORDERED: REGADENOSON INJ 0.4 MG/5 ML SYR ONE (09:41)
--- NOTE | 2017-09-24 10:51 | RADRPT ---
EXAM DATE/TIME: 09/24/2017 09:10 [facility] COMPARISON: No previous studies available for comparison. INDICATIONS : Intermittent chest pain for two years. Angina. DOSE: 25.9 mCi Tc99m Myoview at stress. 8.7 mCi Tc99m Myoview at rest. 0.4 mg Lexiscan STRESS SYMPTOMS: Short of breath, chest pain and neck pain. EJECTION FRACTION: > 70% MEDICAL HISTORY : Gastroesophageal reflux disease. SURGICAL HISTORY : Cholecystectomy. Bilateral hips. ENCOUNTER: Initial ACUITY: >1 yr PAIN SCALE: 3/10 LOCATION: Midsternal chest TECHNIQUE: The patient underwent pharmacologic stress with infusion of prescribed dose. Continuous ECG tracing was monitored during stress. Gated SPECT imaging was performed after stress and conventional SPECT i maging was performed at rest. The examination was performed on a SPECT/CT scanner, both attenuation and non-corrected datasets were reviewed. FINDINGS: DISTRIBUTION: The maximum perfused segment at stress is in the inferior wall. PERFUSION STUDY: The pattern of perfusion at stress is within normal limits. GATED STUDY: There is intact wall motion and thickening without hypokinetic or dyskinetic segments. CONCLUSION: 1. No infarction or stress-induced ischemia. 2. Intact wall motion with EF of 7>0%. RISK CATEGORY: Low (<1% Annual Mortality Rate) Keenan Alberto MD on September 24, 2017 at 10:48 Board Certified Radiologist. This report was verified electronically.
--- NOTE | 2017-09-24 11:43 | HHI.DCPOC ---
Discharge Care Plan Diagnosis: (1) Atypical chest pain Goals to Promote Your Health * To prevent worsening of your condition and complications * To maintain your health at the optimal level Directions to Meet Your Goals Take your medications as prescribed Follow your dietary instruction Follow activity as directed Keep your appointments as scheduled Take your immunizations and boosters as scheduled If your symptoms worsen call your PCP, if no PCP go to Urgent Care Center or Emergency Room Smoking is Dangerous to Your Health. Avoid second hand smoke Call the 24-hour hour crisis hotline for domestic abuse at Cookie Recinos Sep 24, 2017 11:43
--- NOTE | 2017-09-24 11:44 | HHI.DS ---
Discharge Summary Admission Date Sep 23, 2017 at 13:03 Discharge Date: Sep 24, 2017 Admitting Diagnosis chest pain Brief History 57-year-old female with history of coronary artery disease, A. fib, chronic pain , anxiety percent emergency room for further evaluation of chest pain. The chest pain center. Ruled out with 3 sets of EKGs, cardiac enzymes, monitor on telemetry overnight, and seen and evaluated by chest pain center quarantine inspector. Proceed with chemical stress test in a.m. Conclusions Lexiscan unremarkable. CBC/BMP: 09/23/17 1217 09/23/17 1217 Significant Findings Laboratory Tests Test 09/23/17 12:17 09/23/17 15:10 09/23/17 18:10 Monocytes (%) (Auto) 10.2 % (0.0-8.0) Blood Urea Nitrogen 19 MG/DL (7-18) Estimat Glomerular Filtration Rate 57 ML/MIN (>89) Troponin I LESS THAN 0.02 NG/ML LESS THAN 0.02 NG/ML LESS THAN 0.02 NG/ML Imaging Last 48 hours Impressions Myocardial Perfusion Scan Nuc Med 09/24/17 0000 Signed Impressions: Service Date/Time: Sunday, September 24, 2017 09:10 - CONCLUSION: 1. No infarction or stress-induced ischemia. 2. Intact wall motion with EF of 7>0%%. RISK CATEGORY: Low (<1%% Annual Mortality Rate) Keenan Alberto MD Chest X-Ray 09/23/17 1147 Signed Impressions: Service Date/Time: Saturday, September 23, 2017 12:10 - CONCLUSION: No acute disease. Michelle Long MD PE at Discharge GENERAL: Alert WN, WD, NAD, pleasant, female HEAD: NC, AT CV: RRR, without murmur, rub, gallop, no JVD, S1-S2 no S3-S4. RESP: Clear lungs throughout bilateral, no crackles, wheeze, rhonchi, symmetrical chest rise, nonlabored, able to speak in full sentences MS: Normal tone 4 extremities, nontender, no obvious deformities, full range of motion NEURO: CN II through CN XII grossly intact, motor strength 5/5 PSYCH: A+O 3, pleasant affect, speech, mood, insight and judgment SKIN: Normal turgor, normal texture Pt Condition on Discharge: Good Discharge Disposition: Discharge Home Discharge Instructions DIET: Follow Instructions for: Heart Healthy Diet Activities you can perform: Regular-No Restrictions Cookie Recinos Sep 24, 2017 11:44
[2017-09-24 11:49] VITALS: BP 111/66; PULSE 82; RESP 16; TEMP 98.3; O2SAT 97
--- NOTE | 2017-09-24 17:12 | EKG ---
Date Performed: 09/23/2017 Time Performed: 20:00:57 PTAGE: 57 years EKG: Sinus rhythm NORMAL ECG INTERPRETATION BASED ON A DEFAULT AGE OF 38 YEARS NO PREVIOUS TRACING DOCTOR: Errol Rudd Interpretating Date/Time 09/24/2017 17:11:02
--- NOTE | 2017-09-24 17:12 | EKG ---
Date Performed: 09/23/2017 Time Performed: 18:11:47 PTAGE: 57 years EKG: Sinus rhythm NORMAL ECG PREVIOUS TRACING : 09/23/2017 15.23 Since previous tracing, no significant change noted DOCTOR: Errol Rudd Interpretating Date/Time 09/24/2017 17:11:12
--- NOTE | 2017-09-24 17:13 | EKG ---
Date Performed: 09/23/2017 Time Performed: 15:23:47 PTAGE: 57 years EKG: Sinus rhythm NORMAL ECG PREVIOUS TRACING : 09/23/2017 11.50 Since previous tracing, no significant change noted DOCTOR: Errol Rudd Interpretating Date/Time 09/24/2017 17:11:38
--- NOTE | 2017-09-24 17:13 | EKG ---
Date Performed: 09/23/2017 Time Performed: 11:50:59 PTAGE: 57 years EKG: Sinus rhythm NORMAL ECG PREVIOUS TRACING : 04/15/2017 19.56 Since previous tracing, no significant change noted DOCTOR: Errol Rudd Interpretating Date/Time 09/24/2017 17:13:14
--- NOTE | 2017-09-24 17:16 | TR ---
Date Performed: 09/24/2017 Time Performed: 09:39:57 DOCTOR: Errol Rudd DRUG LIST: CLINICAL HISTORY: REASON FOR TEST: REASON FOR ENDING: OBSERVATION: CONCLUSION: Lexiscan stress test was performed under standard four minute protocol. Radionuclid e was injected one minute prior to ending the test. No electrocardiographic abormalities were present to suggest ischemia. Nuclear imaging and interpretation are pending. COMMENTS:
== END 2017-09-24 12:34 | disposition home or self-care (01) ==
LOC: NEPE 11:27 → NEDA 13:03 → NEPHCDU 15:26
DX: R07.89 Other chest pain (principal); I25.10 Atherosclerotic heart disease of native coronary artery without angina pectoris; G89.29 Other chronic pain; M54.9 Dorsalgia, unspecified; R11.0 Nausea; R61 Generalized hyperhidrosis; R42 Dizziness and giddiness; I48.91 Unspecified atrial fibrillation; J44.9 Chronic obstructive pulmonary disease, unspecified; M19.90 Unspecified osteoarthritis, unspecified site; E78.00 Pure hypercholesterolemia, unspecified; M85.80 Other specified disorders of bone density and structure, unspecified site; F41.8 Other specified anxiety disorders; K21.9 Gastro-esophageal reflux disease without esophagitis; Z86.19 Personal history of other infectious and parasitic diseases
CPT/HCPCS: 71045; 78452; 80048; 82550; 83735; 84484; 85025; 85610; 85730; 93005; 93017; 96360; 99285; A9502; G0378; J2785; J7040

== ENCOUNTER 2017-11-08 02:46 | Emergency (ER) | payer MEDICARE, MEDICAID ==
[~2017-11-08 02:46] MED LIST changes: +BACL10TA PO; -BUSP15TA PO; +CELE50CA PO; -CYMB60CA PO; -GABA600T PO; +HYDR25TA5 PO; +NUCY150T PO; -TIZA4CAP3 PO; -TRAM50TA PO; -[UNRECOGNIZED DRUG - CODE]
[2017-11-08 02:54] VITALS: BP 110/72; PULSE 81; RESP 18; TEMP 97.3; O2SAT 99
[2017-11-08 03:15] VITALS: BP 101/62; PULSE 82; RESP 18; O2SAT 98
[2017-11-08] MEDS ORDERED: ASPI81CH6 CHEW (03:16)
[2017-11-08] MEDS ORDERED: CYCLOBENZAPRINE HCL 10 MG TAB PO ONE (03:45)
[2017-11-08] MEDS ORDERED: KETOROLAC TROMETHAMINE 30 MG/ML (IVP) VIAL IV PUSH ONE (03:45)
[2017-11-08 03:57] LABS: AUTOMATED NEUTROPHIL # 3.7 TH/MM3 (1.8-7.7); BASOPHIL # 0.1 TH/MM3 (0-0.2); BASOPHIL % 0.9 % (0.0-2.0); EOSINOPHIL # 0.2 TH/MM3 (0-0.4); EOSINOPHIL % 2.6 % (0.0-4.0); HEMATOCRIT 39.3 % (35.0-46.0); HEMOGLOBIN 13.3 GM/DL (11.6-15.3); LYMPH % 33.9 % (9.0-44.0); LYMPHOCYTE # 2.4 TH/MM3 (1.0-4.8); MEAN CELL VOLUME 90.9 FL (80.0-100.0); MEAN CORPUSCULAR HEMOGLOBIN 30.8 PG (27.0-34.0); MEAN CORPUSCULAR HGB CONC 33.9 % (32.0-36.0); MEAN PLATELET VOLUME 7.9 FL (7.0-11.0); MONO % 9.4 % (0.0-8.0); MONOCYTE # 0.7 TH/MM3 (0-0.9); NEUT % 53.2 % (16.0-70.0); PLATELET COUNT 309 TH/MM3 (150-450); RED BLOOD COUNT 4.33 MIL/MM3 (4.00-5.30); RED CELL DISTRIBUTION WIDTH 13.9 % (11.6-17.2)
[2017-11-08 04:12] LABS: ALBUMIN 3.7 GM/DL (3.4-5.0); AST (GOT) 13 U/L (15-37); BICARBONATE 31.4 MEQ/L (21.0-32.0); BLOOD UREA NITROGEN 25 MG/DL (7-18); CALCIUM 8.9 MG/DL (8.5-10.1); CHLORIDE 102 MEQ/L (98-107); CREATININE 1.17 MG/DL (0.50-1.00); GLOMERULAR FILTRATION RATE 47 ML/MIN (>89); GLUCOSE,RANDOM 99 MG/DL (74-106); SODIUM (NA) 142 MEQ/L (136-145)
[2017-11-08 04:15] LABS: ALKALINE PHOSPHATASE 105 U/L (45-117); ALT (GPT) 23 U/L (10-53); TOTAL BILIRUBIN ADULT 0.3 MG/DL (0.2-1.0); TOTAL PROTEIN 7.1 GM/DL (6.4-8.2)
--- NOTE | 2017-11-08 04:29 | PD ---
HPI Chief Complaint: Hypertension Time Seen by Provider: 03:23 Travel History International Travel<30 days: No Contact w/Intl Traveler<30days: No Traveled to known affect area: No History of Present Illness HPI Patient is a 57 year old female who comes in with multiple complaints. She says she has had high blood pressure for 1 week. She says she has had a headache on and off for 1 week. She says she has had neck pain for the past week. She says she has hip pain. She has not taken anything for pain. She says she currently does not have a headache. She denies any chest pain or SOB. She says she has had nausea, but no vomiting. She ate chicken for dinner last night without an issue. She denies blurred vision, fever or chills. PFSH Past Medical History Hx Anticoagulant Therapy: No Arthritis: Yes (degen disc disease) Autoimmune Disease: No Anxiety: Yes Depression: Yes Heart Rhythm Problems: No Cancer: No Cardiac Catheterization: No Cardiovascular Problems: Yes (CAD) High Cholesterol: Yes Chemotherapy: No Cerebrovascular Accident: No Diabetes: No Diminished Hearing: No Endocrine: No Gastrointestinal Disorders: Yes (GERD) Genitourinary: Yes (inflammation in bladder per patient, hematuria) Hepatitis: Yes (B) Hiatal Hernia: No Heparin Induced Thrombocytopen: No Immune Disorder: No Neurologic: No Psychiatric: Yes (ANXIETY DEPRESSION) Reproductive: No Respiratory: No Immunizations Current: Yes Thyroid Disease: No Menopausal: Yes Tubal Ligation: Yes Past Surgical History Abdominal Surgery: Yes (tremaine) AICD: No Cardiac Surgery: No Cholecystectomy: Yes Coronary Artery Bypass Graft: No Ear Surgery: No Endocrine Surgery: No Eye Surgery: Yes (right eye cataract removal) Genitourinary Surgery: No Gynecologic Surgery: Yes (tubal ligation) Hysterectomy: No Joint Replacement: Yes (bilat hip) Oral Surgery: No Pacemaker: No Thoracic Surgery: No Other Surgery: Yes (GALLBLADDER REMOVED ) Family History Family Myocardial Infarction: Yes (father side grandfather ) Social History Alcohol Use: No (DENIES) Tobacco Use: No Substance Use: No Allergies-Medications (Allergen,Severity, Reaction): Coded Allergies: tramadol (Verified Allergy, Unknown, 11/08/17) ciprofloxacin (Verified Adverse Reaction, Severe, STIFFENS HER MUSCLES, 11/08/17) Reported Meds & Prescriptions Reported Meds & Active Scripts Active Reported Aspirin Low Dose (Aspirin) 81 Mg Chew 81 Mg CHEW DAILY Elmiron (Pentosan Polysulfate Sodium) 100 Mg Cap 100 Mg PO TID Hydrochlorothiazide 25 Mg Tab 25 Mg PO DAILY Nucynta ER (Tapentadol) 150 Mg Kelly 150 Mg PO BID Baclofen 10 Mg Tab 10 Mg PO Q12HR Pantoprazole (Pantoprazole Sodium) 40 Mg Tab 40 Mg PO DAILY Review of Systems Except as stated in HPI: all other systems reviewed are Neg General / Constitutional: No: Fever, Chills HENT: Positive: Headaches, Neck Pain Cardiovascular: No: Chest Pain or Discomfort Respiratory: No: Shortness of Breath Gastrointestinal: Positive: Nausea, No: Vomiting Musculoskeletal: No: Myalgias, Edema Skin: No Rash, No Change in Pigmentation Neurologic: No: Weakness, Dizziness Physical Exam Narrative GENERAL: Awake and alert, in no acute distress. SKIN: Focused skin assessment warm/dry. No wounds or signs of infection. HEAD: Atraumatic. Normocephalic. EYES: Pupils equal and round. No scleral icterus. EOMI. ENT: Mucous membranes pink and moist. NECK: Trachea midline. No JVD. CARDIOVASCULAR: Regular rate and rhythm. No murmur appreciated. RESPIRATORY: No accessory muscle use. Clear to auscultation. Breath sounds equal bilaterally. GASTROINTESTINAL: Abdomen soft, non-tender, nondistended. MUSCULOSKELETAL: No obvious deformities. No clubbing. No cyanosis. No edema. NEUROLOGICAL: Awake and alert. No obvious cranial nerve deficits. Motor grossly within normal limits. Normal speech. PSYCHIATRIC: Appropriate mood and affect; insight and judgment normal. Data Data Last Documented VS Vital Signs Date Time Temp Pulse Resp B/P (MAP) Pulse Ox O2 Delivery O2 Flow Rate FiO2 11/08/17 03:15 82 18 101/62 (75) 98 Room Air 11/08/17 02:54 97.3 Orders Orders Iv Access Insert/Monitor (11/08/17 03:35) Complete Blood Count With Diff (11/08/17 03:35) Comprehensive Metabolic Panel (11/08/17 03:35) Ketorolac Inj (Toradol Inj) (11/08/17 03:45) Cyclobenzaprine (Flexeril) (11/08/17 03:45) Labs Laboratory Tests Test 11/08/17 03:47 White Blood Count 7.0 TH/MM3 Red Blood Count 4.33 MIL/MM3 Hemoglobin 13.3 GM/DL Hematocrit 39.3 % Mean Corpuscular Volume 90.9 FL Mean Corpuscular Hemoglobin 30.8 PG Mean Corpuscular Hemoglobin Concent 33.9 % Red Cell Distribution Width 13.9 % Platelet Count 309 TH/MM3 Mean Platelet Volume 7.9 FL Neutrophils (%) (Auto) 53.2 % Lymphocytes (%) (Auto) 33.9 % Monocytes (%) (Auto) 9.4 % Eosinophils (%) (Auto) 2.6 % Basophils (%) (Auto) 0.9 % Neutrophils # (Auto) 3.7 TH/MM3 Lymphocytes # (Auto) 2.4 TH/MM3 Monocytes # (Auto) 0.7 TH/MM3 Eosinophils # (Auto) 0.2 TH/MM3 Basophils # (Auto) 0.1 TH/MM3 CBC Comment DIFF FINAL Differential Comment Blood Urea Nitrogen 25 MG/DL Creatinine 1.17 MG/DL Random Glucose 99 MG/DL Total Protein 7.1 GM/DL Albumin 3.7 GM/DL Calcium Level 8.9 MG/DL Alkaline Phosphatase 105 U/L Aspartate Amino Transf (AST/SGOT) 13 U/L Alanine Aminotransferase (ALT/SGPT) 23 U/L Total Bilirubin 0.3 MG/DL Sodium Level 142 MEQ/L Potassium Level 3.4 MEQ/L Chloride Level 102 MEQ/L Carbon Dioxide Level 31.4 MEQ/L Anion Gap 9 MEQ/L Estimat Glomerular Filtration Rate 47 ML/MIN MDM Medical Decision Making Medical Screen Exam Complete: Yes Emergency Medical Condition: Yes Medical Record Reviewed: Yes Differential Diagnosis tension headache vs dehydration vs muscle spasm Narrative Course Patient is a 57 year old female who comes in complaining of multiple medical complaints. Exam shows no acute abnormalities. BP is 110/72 on arrival. IV established, labs sent. Labs show no acute abnormalities. Patient given Toradol and Flexeril. She is reassured. Advised to follow up with a primary doctor. Advised to return to the ED as needed for any worsening symptoms. Diagnosis Primary Impression: Neck muscle strain Qualified Codes: S16.1XXA - Strain of muscle, fascia and tendon at neck level , initial encounter Patient Instructions: Cervical Strain (ED), General Instructions Additional Instructions: Take ibuprofen as needed for pain. Follow-up with a primary care doctor. Return to the ED as needed for any worsening symptoms. Disposition: 01 DISCHARGE HOME Condition: Stable Coral Garcia MD November 08, 2017 04:29
== END 2017-11-08 04:35 | disposition home or self-care (01) ==
LOC: NEPE 02:46
DX: S16.1XXA Strain of muscle, fascia and tendon at neck level, initial encounter (principal); K21.9 Gastro-esophageal reflux disease without esophagitis; X58.XXXA Exposure to other specified factors, initial encounter
CPT/HCPCS: 80053; 85025; 96374; 99284; J1885

== ENCOUNTER → 2017-11-27 | Outpatient (CLI) | payer MEDICARE, MEDICAID ==
[~2017-11-27] VITALS: Ht 160 cm; Wt 64.3 kg
[~2017-11-27] MED LIST changes: +ASPI81CH6 CHEW; -CELE50CA PO; +CHLORHEXIDINE GLUCONATE 2 % 1 PACK (2 CLOTHS) TOPICAL PRN; +CYMB60CA PO; +DEXTROSE 5%-LACTATED RING INJ 1,000 ML IV SCH; +GABA600T PO; +LACTATED RINGER'S 1000 ML IV PRN; +LIDOCAINE HCL 1% PF 5 ML SYRINGE OTHER ONE; +METOPROLOL TARTRATE 25 MG TAB PO PRN; +MORP1CAP62 PO; +POVIDONE IODINE 5% (ANTISEPSIS KIT) 4 APPLICATIONS EACH NARE PRN; +PROPOFOL 200 MG/20 ML AMP IV ONE; +SODIUM CHLORID 0.9% 500 ML IV PRN
--- NOTE | 2017-11-27 11:31 | PD.PROCEDR ---
GI Procedure PROCEDURE PERFORMED EGD with biopsy followed by an incomplete colonoscopy due to poor prep with IRC INDICATION FOR PROCEDURE Abdominal pain, constipation, rectal bleeding, heartburn reflux PROCEDURE: The procedure, risks and benefits were discussed with Patient/POA and informed consent was obtained. Anesthesia sedated Patient with Diprivan. Patient was placed in the left lateral decubitus position. EGD: The Pentax videoscope was introduced through the oropharynx and advanced to the second portion of the duodenum under direct visualization. Retroflexion was performed in the stomach. FINDINGS: The esophagus this appeared to be unremarkable and within normal limits, distal esophageal biopsies were taken for further evaluation The stomach there was some patchy erythema in the antrum but no ulcerations no erosions no blood or bleeding the rest of the stomach was unremarkable antral biopsies were taken for further evaluation The duodenum this was normal Colonoscopy: The Pentax videoscope was introduced through the rectum and advanced to proximal transverse colon. Retroflexion was performed in the rectum. Colonic prep was poor inadequate FINDINGS: As the scope was slowly withdrawn colonic mucosa was carefully inspected there was still lots of liquid in chunky stool throughout the colon but the colonic mucosa was unremarkable and within normal limits retroflexion in the rectum did reveal grade 2 internal hemorrhoids IRC was applied 6 applications were used rectal examination otherwise unremarkable ESTIMATED BLOOD LOSS: None SPECIMENS REMOVED: Esophageal and gastric biopsies COMPLICATIONS: None IMPRESSION: Gastritis Internal hemorrhoids Incomplete colonoscopy PLAN: Await biopsies Follow-up in clinic in 3 weeks Repeat colonoscopy in 3 months with a 2 day prep Reflux precautions and constipation precautions and hemorrhoidal precautions were explained to the patient Pratik Segura MD November 27, 2017 11:31
[2017-11-27 11:59] VITALS: BP 105/65; PULSE 88; RESP 18; TEMP 97.4; O2SAT 99
== END ==
LOC: HEND 08:08
PROVIDERS: ATTEND Internal Medicine Gastroenterology
DX: R10.9 Unspecified abdominal pain (principal); K29.70 Gastritis, unspecified, without bleeding; K21.9 Gastro-esophageal reflux disease without esophagitis; R12 Heartburn; K62.5 Hemorrhage of anus and rectum; K64.1 Second degree hemorrhoids; K59.00 Constipation, unspecified; Z87.891 Personal history of nicotine dependence; E11.9 Type 2 diabetes mellitus without complications; E78.5 Hyperlipidemia, unspecified; M47.816 Spondylosis without myelopathy or radiculopathy, lumbar region; R11.0 Nausea; R77.2 Abnormality of alphafetoprotein; R68.81 Early satiety; Q44.6 Cystic disease of liver; G89.4 Chronic pain syndrome; F41.9 Anxiety disorder, unspecified; M47.814 Spondylosis without myelopathy or radiculopathy, thoracic region; N94.89 Other specified conditions associated with female genital organs and menstrual cycle; K76.89 Other specified diseases of liver; R53.83 Other fatigue; M51.36 Other intervertebral disc degeneration, lumbar region
CPT/HCPCS: 00902; 43239; 45378; 46930; 88305; 88312; J7120